=== PATIENT | male | born 1990 | race Caucasian/White ===

== ENCOUNTER 2023-10-06 14:57 | Emergency (ER) | payer SELFPAY ==
[2023-10-06 15:03] VITALS: BP 121/94; PULSE 73; TEMP 37.1; O2SAT 97; BMI 29.4
--- NOTE | 2023-10-06 15:11 | ED.DENTAL1 ---
HPI - Dental/Oral General Chief complaint: Dental/Oral Stated complaint: DENTAL PAIN Time Seen by Provider: 10/06/23 15:01 Source: patient Mode of arrival: walk-in Limitations: no limitations History of Present Illness HPI Narrative: Patient is a 33-year-old male who presents to the emergency department for pain in tooth #17. He states last night he bit down and the tooth broke. He is having significant pain today and a sensation that his face is swollen. There has been no drainage. He denies any facial injury or trauma. He uses a vape daily. No fevers or vomiting. He used ibuprofen which helped some yesterday. He does not have a dentist. Related Data Previous Rx's ?Medication ?Instructions ?Recorded amoxicillin 500 mg capsule 500 mg PO TID 10 days #30 caps 10/06/23 hydrocodone 5 mg-acetaminophen 325 1 tab PO Q6H PRN pain 3 days #12 10/06/23 mg tablet tabs ketorolac 10 mg tablet 10 mg PO TID PRN pain #10 tabs 10/06/23 Allergies Allergy/AdvReac Type Severity Reaction Status Date / Time No Known Drug Allergies Allergy Verified 10/06/23 15:03 Review of Systems ROS Constitutional Denies: fever or chills Ears, nose, mouth, and throat Reports: mouth pain; Denies: throat pain or nasal congestion Cardiovascular Denies: chest pain Respiratory Denies: shortness of breath or cough Gastrointestinal Denies: nausea or vomiting Musculoskeletal Denies: back pain or neck pain Integumentary/Breast Denies: rash Neurological Reports: headache Hematologic/Lymphatic Denies: easy bruising or easy bleeding Exam Narrative Exam Narrative: Gen.: Awake, alert, in no distress Head: Normocephalic, atraumatic ENT: Moist mucous membranes, Tooth #17 and tooth #18 with fractures of the tooth, root exposed to both teeth. No swelling or redness of the gumline. No trismus or drooling. Clear speech with airway widely open and patent. No visible dental abscess Respiratory: No respiratory distress Extremities: Moves extremities equally Psych: Normal mood and affect Neuro: No focal neuro deficit Skin: Warm, dry, intact Constitutional Vital Signs, click to edit/add: Last Vital Signs Temp 98.7 F 10/06/23 15:03 Pulse 73 10/06/23 15:03 Resp 18 10/06/23 15:03 BP 121/94 H 10/06/23 15:03 Pulse Ox 97 10/06/23 15:03 Course Vital Signs Vital signs: Vital Signs Temperature 98.7 F 10/06/23 15:03 Pulse Rate 73 10/06/23 15:03 Respiratory Rate 18 10/06/23 15:03 Blood Pressure 121/94 H 10/06/23 15:03 Pulse Oximetry 97 10/06/23 15:03 Temperature 98.7 F 10/06/23 15:03 Pulse Rate 73 10/06/23 15:03 Respiratory Rate 18 10/06/23 15:03 Blood Pressure 121/94 H 10/06/23 15:03 Pulse Oximetry 97 10/06/23 15:03 MDM - Dental/Oral MDM Narrative Medical decision making narrative: Patient treated for symptoms with amoxicillin and a short course of analgesics with anti-inflammatories and topical analgesia. Follow-up with dentist and return to the ER if symptoms change or worsen. Medical Records Attestation: I reviewed the patient's medical records. Discharge Plan Discharge Stand Alone Forms: Portal Instructions Chief Complaint: Dental/Oral Clinical Impression: Toothache, Fracture of tooth Patient Disposition: Home, Self-Care Time of Disposition Decision: 15:09 Condition: Good Prescriptions / Home Meds: New amoxicillin 500 mg capsule 500 mg PO TID 10 Days Qty: 30 0RF hydrocodone-acetaminophen 5-325 mg tablet 1 tab PO Q6H PRN (Reason: pain) 3 Days Qty: 12 0RF Rx Instructions: DX: K08.89 ketorolac 10 mg tablet 10 mg PO TID PRN (Reason: pain) Qty: 10 0RF Print Language: Sudanese Instructions: Toothache (ED) Additional Instructions: Follow up with dentist as soon as possible Referrals: Physician,Non-Staff, MD [Primary Care Provider] - 1 week
[2023-10-06] MEDS: BENZOCAINE 30 ML, lidocaine HCL 15 ML MM (15:19)
== END 2023-10-06 15:21 | disposition home or self-care (01) ==
PROVIDERS: Emergency Provider Emergency Medicine Emergency Medical Services
DX: S02.5XXA Fracture of tooth (traumatic), initial encounter for closed fracture (principal); K08.89 Other specified disorders of teeth and supporting structures; X58.XXXA Exposure to other specified factors, initial encounter; F17.290 Nicotine dependence, other tobacco product, uncomplicated
CPT/HCPCS: 99283

== ENCOUNTER 2024-03-07 08:34 | Emergency (ER) | payer OTHER, SELFPAY ==
[2024-03-07 08:37] VITALS: BP 125/88; PULSE 107; TEMP 37.4; O2SAT 96; BMI 30.3
--- OUTSIDE RECORDS SUMMARY | 2024-03-07 08:43 | XMS_ITS | CCD ---
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 applesauce, rice, lean meats, toast, and crackers. ? Avoid alcohol. ? Avoid spicy or fatty foods. Medicines ? Take zxgy-kjq-xsqegfa and prescription medicines only as told by your health care provider. ? If you were prescribed an antibiotic medicine, take it as told by your health care provider. Do not stop using the antibiotic even if you start to feel better. General instructions ? Wash your hands often using soap and water. If soap and water are not available, use a hand sander portable machine. Others in the household should wash their hands as well. Hands should be washed: ? After using the toilet or changing a diaper. ? Before preparing, cooking, or serving food. ? While caring for a sick person or while visiting someone in a hospital. ? Drink enough fluid to keep your urine pale yellow. ? Rest at home while you recover. ? Watch your condition for any changes. ? Take a warm bath to relieve any burning or pain from frequent diarrhea episodes. ? Keep all follow-up visits as told by your health care provider. This is important. Contact a health care provider if: ? You have a fever. ? Your diarrhea gets worse. ? You have new symptoms. ? You cannot keep fluids down. ? You feel light-headed or dizzy. ? You have a headache. ? You have muscle cramps. Get help right away if: ? You have chest pain. ? You feel extremely weak or you faint. ? You have bloody or black stools or stools that look like tar. ? You have severe pain, cramping, or bloating in your abdomen. ? You have trouble breathing or you are breathing very quickly. ? Your heart is beating very quickly. ? Your skin feels cold and clammy. ? You feel confused. ? You have signs of dehydration, such as: ? Dark urine, very little urine, or no urine. ? Cracked lips. ? Dry mouth. ? Sunken eyes. ? Sleepiness. ? Weakness. Summary ? Diarrhea is frequent loose and watery bowel movements. Diarrhea can make you feel weak and cause you to become dehydrated. ? Drink enough fluids to keep your urine pale yellow. ? Make sure that you wash your hands after using the toilet. If soap and water are not available, use hand sander portable machine. ? Contact a health care provider if your diarrhea gets worse or you have new symptoms. ? Get help right away if you have signs of dehydration. This information is not intended to replace advice given to you by your health care provider. Make sure you discuss any questions you have with your health care provider. Document Released: 05/01/2003 Document Revised: 09/27/2019 Document Reviewed: 10/15/2018 [employer] Patient Education ? 2020 [employer] Orthopedics Osteoarthritis Osteoarthritis is a type of arthritis that affects tissue that covers the ends of bones in joints (cartilage). Cartilage acts as a cushion between the bones and helps them move smoothly. Osteoarthritis results when cartilage in the joints gets worn down. Osteoarthritis is sometimes called wear and tear arthritis. Osteoarthritis is the most common form of arthritis. It often occurs in older people. It is a condition that gets worse over time (a progressive condition). Joints that are most often affected by this condition are in: ? Fingers. ? Toes. ? Hips. ? Knees. ? Spine, including neck and lower back. What are the causes? This condition is caused by age-related wearing down of cartilage that covers the ends of bones. What increases the risk? The following factors may make you more likely to develop this condition: ? Older age. ? Being overweight or obese. ? Overuse of joints, such as in athletes. ? Past injury of a joint. ? Past surgery on a joint. ? Family history of osteoarthritis. Wh (more content not included)... Normal [facility] ED Patient Summaryon 022 ED Patient Summary [address] [address] Patient Discharge Instructions Person Information Name: CHUCK DUNHAM Age: 31 Years Arrival Date: 05/12/2022 08:35:41 Discharge Diagnosis: Cough; Diarrhea, unspecified; Nausea vomiting and diarrhea Primary Care Physician: Sera Rich DO Provider Information Primary Provider: Sanjeev Toribio DO Advanced Gas Manager:Deven Piña PA-C The exam and treatment you received in the Emergency Department were for an urgent problem and are not intended as complete care. It is important that you follow up with a doctor, nurse practitioner, or physician?s medical staff assistant for ongoing care. If your symptoms become worse or you do not improve as expected and you are unable to reach your usual health care provider, you should return to the Emergency Department. We are available 24 hours a day. EMILIOCHUCK has been given the following list of patient education materials, prescriptions and follow-up instructions: Follow-up Instructions: With: Address: When: Sera Rich [address], [facility] [address] [place] [address] Business (1) In 3 days 05/15/2022 In the event that this physician does not participate in your insurance network, please consult with your insurance company to find a nearby participating provider. Patient Education Materials: Osteoarthritis; Diarrhea, Adult A MESSAGE TO ALL PATIENTS REGARDING OPIOIDS PRESCRIPTION OPIOIDS: WHAT YOU NEED TO KNOW Prescription opioids can be used to help relieve rhigsddd-zs-zvukmg pain and are often prescribed following a surgery or injury, or for certain health conditions. These medications can be an important part of the treatment but also come with serious risks. It is important to work with your healthcare provider to make sure you are getting the safest, most effective care. WHAT ARE THE RISKS AND SIDE EFFECTS OF OPIOID USE? Prescription opioids carry serious risks of addiction and overdose, especially with prolonged use. An opioid overdose, often marked by slowed breathing, can cause sudden . The use of prescription opioids can have a number of side effects as well, even when taken as directed: ? Tolerance?meaning you might need to take more of the medication for the same pain relief ? Physical dependence?meaning you have symptoms of withdrawal when a medication is stopped ? Increased sensitivity to pain ? Constipation ? Nausea, vomiting, and dry mouth ? Sleepiness and dizziness ? Confusion ? Depression ? Low levels of testosterone that can result in lower sex drive, energy, and strength ? Itching and sweating RISKS ARE GREATER WITH: ? History of drug misuse, substance use disorder, or overdose ? Mental health conditions (such as depression or anxiety) ? Sleep apnea ? Older age (65 years and older) ? Avoid alcohol while taking prescription opioids. Also, unless specifically advised by your health care provider, medications to avoid include: ? Benzodiazepines (such as Xanax or Valium) ? Muscle relaxants (such as Soma or Flexeril) ? Hypnotics (such as Ambien or Lunesta) ? Other prescription opioids KNOW YOUR OPTIONS Talk to your health care provider about ways to manage your pain that don?t involve prescription opioids. Some of these options may actually work better and have fewer risks and side effects. Options may include: ? Pain relievers such as acetaminophen, ibuprofen, and naproxen ? Some medication that are also used for depression or seizures ? Physical therapy and exercise ? Cognitive behavioral therapy, a psychological, goal-directed approach, in which patients learn how to modify physical, behavioral, and emotional triggers of pain and stress. IF YOU ARE PRESCRIBED OPIOIDS FOR PAIN: ? Never take opioids in greater amounts or more often than prescribed. ? Follow up with your primary health care provider. o Work together to create a plan on how to manage your pain. o Talk about ways to help manage your pain that don?t involve prescription opioids. o Talk about any and all concerns and side effects. ? Help prevent misuse and abuse o Never sell or share prescription opioids. o Never use another person?s prescription opioids. ? Store prescription opioids in a secure place and out of reach of others (this may include visitors, children, friends, and family). ? Safely dispose of unused prescription opioids: Find your community drug take-back program or your pharmacy mail-back program, or flush them down the toilet, following guidance from the Food and Drug Administration (www.fda.gov/Drugs/Re sourcesForYou). ? Visit www.cdc.gov/drugoverd ose to learn about the risks of opioids abuse and overdose. ? If you believe you may be struggling with addiction, tell your health small animal caretaker and ask for guidance or call [facility] (more content not included)... Normal [facility] Hep Func Panelon 05-12-2022 Albumin [Mass/Vol] 4.1 g/dL Normal 3.3-5.0 [facility] Comment on above: Performed By: #### 2 [id number], [id number], 0132303, 8467163, 8847723, [id number] #### [facility] [address] [place] [address] Albumin/Globulin (S) [Mass conc ratio] 1.0 Low 1.1-2.2 [facility] Comment on above: Performed By: #### 2 740912, 9992545, 3667372, 2014505, 1606928, 67042124 #### [facility] [address] [place] [address] ALP [Catalytic activity/Vol] 82 Int._Unit/L Normal 21-98 [facility] Comment on above: Performed By: #### 2 136125, 3070526, 2244796, 5714679, 7618974, 37908756 #### [facility] [address] [place] [address] ALT No additional P-5'-P [Catalytic activity/Vol] 59 Int._Unit/L High 6-46 [facility] Comment on above: Performed By: #### 2 941457, 2823096, 8308857, 4314008, 8575659, 42485373 #### [facility] [address] [place] [address] AST [Catalytic activity/Vol] 44 Int._Unit/L High 5-43 [facility] Comment on above: Performed By: #### 2 723288, 0890461, 9995982, 2910748, 4404100, 13527841 #### [facility] [address] [place] [address] Bilirubin [Mass/Vol] 1.0 mg/dL Normal 0.0-1.1 [facility] Comment on above: Performed By: #### 2 741760, 6459275, 4002545, 9856404, 1800803, 88828368 #### [facility] [address] [place], [place] [id number] Bilirubin.direct [Mass/Vol] 0.2 mg/dL Normal 0.1-0.4 [facility] Comment on above: Performed By: #### 2 971626, 3526519, 3979950, 7646675, 8804888, 45511508 #### [facility] [address] [place] [address] Bilirubin.indirect [Mass or moles/Vol] 0.8 mg/dL Normal 0.1-0.9 [facility] Comment on above: Performed By: #### 2 570501, 7969285, 1982948, 9215348, 6458114, 86679624 #### [facility] [address] [place] [address] Globulin (S) [Mass/Vol] 4.2 g/dL High 1.4-4.0 [facility] Comment on above: Performed By: #### 2 290506, 6363565, 0424335, 7330632, 4774697, 77946437 #### [facility] [address] [place] [address] Protein [Mass/Vol] 8.3 g/dL High 6.0-7.8 [facility] Comment on above: Performed By: #### 2 949277, 2876793, 4737962, 1018620, 0120652, 50076388 #### [facility] [address] [place] [address] Lipase Levelon 05-12-2022 Lipase [Catalytic activity/Vol] 32 U/L Normal 13-58 [facility] Comment on above: Performed By: #### 2 977831, 8066026, 9631174, 8532638, 1076172, 98165506 #### [facility] [address] [place] [address] UA With Cult Reflexon 2021 Bacteria LM Ql (Urine sed) TRACE Normal Trace [facility] Comment on above: Performed By: #### 1 [id number] #### [facility] [address] [place] [address] Bilirubin Ql (U) 1+ Abnormal Negative [facility] Comment on above: Performed By: #### 1 [id number] #### [facility] [address] [place] [address] Clarity (U) CLEAR Normal Clear [facility] Comment on above: Performed By: #### 1 [id number] #### [facility] [address] [place] [address] Color (U) DARK YELLO Invalid Interpretation Code [facility] Comment on above: Performed By: #### 1 [id number] #### [facility] [address] [place] [address] Epithelial cells.squamous LM.HPF (Urine sed) [#/Area] 0-2 Normal 0-2 [facility] Comment on above: Performed By: #### 1 [id number] #### [facility] [address] [place] [address] Glucose Test strip (U) [Mass/Vol] Negative Normal Negative [facility] Comment on above: Performed By: #### 1 [id number] #### [facility] [address] [place] [address] Hemoglobin Ql (U) 1+ Abnormal Negative [facility] Comment on above: Performed By: #### 1 [id number] #### [facility] [address] [place] [address] Ketones (U) [Mass/Vol] TRACE Invalid Interpretation Code Negative [facility] Comment on above: Performed By: #### 1 [id number] #### [facility] [address] [place] [address] [place].plasma/Lith ium.RBC (Bld) [Mass ratio] 0-3 Normal 0-3 [facility] Comment on above: Performed By: #### 1 [id number] #### [facility] [address] [place] [address] Mucus Ql (Urine sed) 1+ Normal [facility] Comment on above: Performed By: #### 1 1377074 #### [facility] [address] [place] [address] Nitrite Ql (U) Negative Normal Negative [facility] Comment on above: Performed By: #### 1 2974449 #### [facility] [address] [place] [address] pH (U) 6.5 [pH] Invalid Interpretation Code 5.0-9.0 [facility] Comment on above: Performed By: #### 1 [id number] #### [facility] [address] [place] [address] Protein (U) [Mass/Vol] 2+ Abnormal Negative [facility] Comment on above: Performed By: #### 1 [id number] #### [facility] [address] [place] [address] Specific gravity (U) [Rel density] 1.015 Invalid Interpretation Code 1.005-1.030 [facility] Comment on above: Performed By: #### 1 [id number] #### [facility] [address] [place] [address] Type of Urine collection method Clean Catch Normal [facility] Comment on above: Performed By: #### 1 [id number] #### [facility] [address] [place] [address] Urobilinogen Qn (U) 1.0 {Joe'U}/dL Normal 0.0-1.0 [facility] Comment on above: Performed By: #### 1 9545047 #### [facility] [address] [place] [address] WBC Auto Ql (U) Negative Normal Negative [facility] Comment on above: Performed By: #### 1 [id number] #### [facility] [address] [place] [address] WBC LM.HPF (Urine sed) [#/Area] 0-5 Normal 0-5 [facility] Comment on above: Performed By: #### 1 8285071 #### [facility] [address] [place] [address] XR Chest Single Viewon 05-12 XR Chest Single View Exam Date/Time: 05/12/2022 09:47 EST Reason for Exam: Cough Report IMPRESSION: NO EVIDENCE OF ACTIVE CHEST DISEASE. CLINICAL HISTORY: Cough. COMPARISON: 07/17/2019. COMMENT: AP portable. The heart is normal in size. The mediastinum is unremarkable. The lungs appear clear. No infiltration nor pleural effusion is evident. No significant change is noted when compared to the prior exam. FINAL REPORT Dictated: 05/12/2022 10:58 am Nikhil Kaur M.D. Signed (Electronic Signature): 05/12/2022 10:58 am Signed by: Nikhil Kaur M.D. Transcribed by: OMERO Technologist: CAROLANN Peterson [facility] eGFRon 05-12-2022 GFR/1.73 sq M.predicted among blacks MDRD (S/P/Bld) [Vol rate/Area] mL/min/{1.73_m2} Normal >=59 [facility] Comment on above: Order Comment: Order added by Discern Expert. Result Comment: eGFR is race adjusted. AA=. Performed By: #### 2 633121, 6092688, 9619393, 2976684, 3474330, [id number] #### [facility] [address] [place] [address] GFR/1.73 sq M.predicted among non-blacks MDRD (S/P/Bld) [Vol rate/Area] mL/min/{1.73_m2} Normal >=59 [facility] Comment on above: Order Comment: Order added by Discern Expert. Result Comment: [employer] Farm Manager zay kidney disease could be indicated at eGFR's of less than 60 mL/min/1.73m2. Kidney failure is indicated at less than 15 mL/min/1.73m2. Performed By: #### 2 888878, 0899156, 5493936, 9731917, 9799555, [id number] #### [facility] [address] [place] [address] CBC AUTO DIFFon 05-16-2021 BASO # 0.1 103/ul Normal 0.0-0.1 [facility] Comment on above: Performed By: #### C BC #### [facility] [address] [place] [address] Dr. Hilaria Reynolds Basophils/100 WBC (Bld) 0.8 % Normal 0.2-2.0 [facility] Comment on above: Performed By: #### C BC #### [facility] [address] [place] [address] Dr. Hilaria Reynolds EO # 0.2 103/ul Normal 0.0-0.7 [facility] Comment on above: Performed By: #### C BC #### [facility] [address] [place] [address] Dr. Hilaria Reynolds Eosinophils/100 WBC (Bld) 2.6 % Normal 0.9-7.0 [facility] Comment on above: Performed By: #### C BC #### [facility] [address] [place] [address] Dr. Hilaria Reynolds Erythrocyte distribution width (RBC) [Ratio] 12.6 % Normal 11.0-15.0 [facility] Comment on above: Performed By: #### C BC #### [facility] [address] [place] [address] Dr. Hilaria Reynolds Hematocrit (Bld) [Volume fraction] 42.4 % Normal 42.0-54.0 [facility] Comment on above: Performed By: #### C BC #### [facility] [address] [place] [address] Dr. Hilaria Reynolds Hemoglobin (Bld) [Mass/Vol] 14.6 g/dL Normal 14.0-18.0 [facility] Comment on above: Performed By: #### C BC #### [facility] [address] [place] [address] Dr. Hilaria Reynolds IG # 0.01 10e3/ul Normal 0.00-0.03 [facility] Comment on above: Performed By: #### C BC #### [facility] [address] [place] [address] Dr. Hilaria Reynolds IG % 0.1 % Normal 0.0-0.5 [facility] Comment on above: Performed By: #### C BC #### [facility] [address] [place] [address] Dr. Hilaria Reynolds LYMPH # 2.9 103/ul Normal 1.2-3.8 [facility] Comment on above: Performed By: #### C BC #### [facility] [address] [place] [address] Dr. Hilaria Reynolds Lymphocytes/100 WBC (Bld) 39.2 % Normal 20.5-60.0 [facility] Comment on above: Performed By: #### C BC #### [facility] [address] [place] [address] Dr. Hilaria Reynolds MANUAL DIFF REQ NO Normal [facility] Comment on above: Performed By: #### C BC #### [facility] [address] [place] [address] Dr. Hilaria Reynolds MCH (RBC) [Entitic mass] 31.1 pg Normal 25.9-34.0 [facility] Comment on above: Performed By: #### C BC #### [facility] [address] [place] [address] Dr. Hilaria Reynolds MCHC (RBC) [Mass/Vol] 34.4 g/dL Normal 29.9-35.2 [facility] Comment on above: Performed By: #### C BC #### [facility] [address] [address] [address] Hilaria Reynolds MCV (RBC) [Entitic vol] 90.2 fL Normal 80.0-94.0 [facility] Comment on above: Performed By: #### C BC #### [facility] [address] [address] [address] Hilaria Reynolds MONO # 0.6 103/ul Normal 0.3-0.8 [facility] Comment on above: Performed By: #### C BC #### [facility] [address] [place] [address] Dr. Hilaria Reynolds Monocytes/100 WBC (Bld) 7.8 % Normal 1.7-12.0 [facility] Comment on above: Performed By: #### C BC #### [facility] [address] [place] [address] Dr. Hilaria Reynolds NEUT # 3.6 103/ul Normal 1.4-6.5 [facility] Comment on above: Performed By: #### C BC #### [facility] [address] [place] [address] Dr. Hilaria Reynolds Neutrophils/100 WBC (Bld) 49.5 % Normal 43.0-75.0 [facility] Comment on above: Performed By: #### C BC #### [facility] [address] [address] [address] Hilaria Reynolds Platelet mean volume (Bld) [Entitic vol] 8.7 fL Critically low 9.5-13.5 [facility] Comment on above: Performed By: #### C BC #### [facility] [address] [place] [address] Dr. Hilaria Reynolds PLT 285 103/ul Normal 150-450 [facility] Comment on above: Performed By: #### C BC #### [facility] [address] [place] [address] Dr. Hilaria Reynolsd RBC 4.70 106/ul Normal 4.70-6.10 [facility] Comment on above: Performed By: #### C BC #### [facility] [address] [place] [address] Dr. Hilaria Reynolds WBC 7.3 103/ul Normal 4.0-11.0 [facility] Comment on above: Performed By: #### C BC #### [facility] [address] [place] [address] Dr. Hilaria Reynolds LAB TESTINGon 05-16-2021 RECV HEADER SEE SCANNED REPORT I N HPF Normal [facility] Comment on above: Performed By: #### M ISC #### [facility] [address] [place] [address] Dr. Hilaria Reynolds REV FROM REF LAB 05/16/21 [facility] Comment on above: Performed By: #### M ISC #### [facility] [address] [place] [address] Dr. Hilaria Reynolds SENT TO REF LAB 05/16/21 [facility] Comment on above: Result Comment: co t o ft Performed By: #### M ISC #### [facility] [address] [place] [address] Dr. Hilaria Reynolds PROF 14(COMP METB)on 021 Albumin [Mass/Vol] 4.4 g/dL Normal 3.5-5.0 [facility] Comment on above: Performed By: #### C MP #### [facility] [address] [place] [address] Dr. Hilaria Reynolds Albumin/Globulin [Mass ratio] 1.4 {ratio} Normal [facility] Comment on above: Performed By: #### C MP #### [facility] [address] [place] [address] Dr. Hilaria Reynolds ALP [Catalytic activity/Vol] 68 U/L Normal 38-126 [facility] Comment on above: Performed By: #### C MP #### [facility] [address] [place] [address] Dr. Hilaria Reynolds ALT [Catalytic activity/Vol] 27 U/L Normal 21-72 [facility] Comment on above: Performed By: #### C MP #### [facility] [address] [address] [address] Hilaria Reynolds Anion gap [Moles/Vol] 14.2 mmol/L Normal [facility] Comment on above: Performed By: #### C MP #### [facility] [address] [address] [address] Hilaria Reynolds AST [Catalytic activity/Vol] 19 U/L Normal 17-59 [facility] Comment on above: Performed By: #### C MP #### [facility] [address] [address] [address] Hilaria Reynolds Bilirubin [Mass/Vol] 0.4 mg/dL Normal 0.2-1.3 [facility] Comment on above: Performed By: #### C MP #### [facility] [address] [place] [address] Dr. Hilaria Reynolds Calcium [Mass/Vol] 9.1 mg/dL Normal 8.4-10.2 [facility] Comment on above: Performed By: #### C MP #### [facility] [address] [address] [address] Hilaria Reynolds Chloride [Moles/Vol] 101 mmol/L Normal 98-107 [facility] Comment on above: Performed By: #### C MP #### [facility] [address] [address] [address] Hilaria Reynolds CO2 [Moles/Vol] 29.5 mmol/L Normal 22.0-30.0 [facility] Comment on above: Performed By: #### C MP #### [facility] [address] [address] [address] Hilaria Reynolds Creatinine [Mass/Vol] 1.09 mg/dL Normal 0.66-1.25 [facility] Comment on above: Performed By: #### C MP #### [facility] [address] [address] [address] Hilaria Reynolds EGFR-AF GUATEMALAN >60 Normal >=60 [facility] Comment on above: Performed By: #### C MP #### [facility] [address] [address] [address] Hilaria Reynolds EGFR-NON AF GUATEMALAN >60 Normal >=60 [facility] Comment on above: Performed By: #### C MP #### [facility] [address] [place] [address] Dr. Hilaria Reynolds Globulin (S) [Mass/Vol] 3.2 g/dL Normal [facility] Comment on above: Performed By: #### C MP #### [facility] [address] [address] [address] Hilaria Reynolds Glucose [Mass/Vol] 107 mg/dL Critically high 74-106 [facility] Comment on above: Performed By: #### C MP #### [facility] [address] [place] [address] Dr. Hilaria Reynolds Potassium [Moles/Vol] 3.7 mmol/L Normal 3.4-5.0 [facility] Comment on above: Performed By: #### C MP #### [facility] [address] [place] [address] Dr. Hilaria Reynolds Protein [Mass/Vol] 7.6 g/dL Normal 6.1-8.2 [facility] Comment on above: Performed By: #### C MP #### [facility] [address] [place] [address] Dr. Hilaria Reynolds Sodium [Moles/Vol] 141 mmol/L Normal 137-145 [facility] Comment on above: Performed By: #### C MP #### [facility] [address] [address] [address] Hilaria Reynolds Urea nitrogen [Mass/Vol] 18.0 mg/dL Normal 9.0-20.0 [facility] Comment on above: Performed By: #### C MP #### [facility] [address] [place] [address] Dr. Hilaria Reynolds Urea nitrogen/Creatinine [Mass ratio] 16.5 mg/mg Normal [facility] Comment on above: Performed By: #### C MP #### [facility] [address] [place] [address] Dr. Hilaria Reynolds Vital Signs Date Time Vital Sign Value Performing Clinician Facility 06-11-2021 14:45-0500 Body height 187.96 cm Steph Ginty Other [email or web address] Other 06-11-2021 14:45-0500 Body mass index (BMI) [Ratio] 26.96 kg/m2 Steph Ginty Other [email or web address] Other 06-11-2021 14:45-0500 Body temperature 98.7 [degF] Steph Ginty Other [email or web address] Other 06-11-2021 14:45-0500 Body weight 95.26 kg Steph Ginty Other [email or web address] Other 06-11-2021 14:45-0500 SaO2% (BldA) [Mass fraction] 99 % Steph Ginty Other [email or web address] Other Encounters Encounter Date Encounter Type Care Provider Facility Start: 04-20-2023 ambulatory Barry Salamanca acility:[facility] Start: 12-18-2022 End: 12-19-2022 ambulatory [facility] Facility:[facility] Start: 10-10-2022 End: 10-11-2022 ambulatory [facility] Start: 05-12-2022 End: 05-12-2022 Emergency department patient visit Sanjeev Toribio Facility:[facility] Start: 06-11-2021 End: 06-11-2021 ambulatory Steph Ginty Other [email or web address] Other Start: 06-11-2021 Office outpatient visit 15 minutes Steph Ginty [facility] Start: 05-16-2021 End: 05-16-[address] KESHAWN BURNS Facility: Payers Date Payer Category Payer Self-pay 1990 Unknown [id number] [id number] 1990 Unknown [id number] [id number] [id number] 1988 Unknown [id number] [id number] [id number] 1988 Unknown [id number] 2.16.8 [id number] 1959 Unknown [id number] Unknown [id number] Unknown [id number] [id number] [id number] Social History Date Type Detail Facility Sex Assigned At [email or web address] Other Evaluation note 06-11-2021 Note Date & Type Note Facility 06-11-2021 Evaluation note Encounter Date Diagnosis Assessment Notes May, Contact with and (suspected) exposure to other viral communicable diseases (ICD-10 - Z20.828) May, COVID-19 (ICD-10 - U07.1) Rapid COVID test performed in office today. Advised patient that test was positive. Instructed patient to isolate per CDC guidelines for 10 days from symptom onset. May return to work/activities outside home after isolation period as long as symptoms are improving and has been afebrile for 24 hours without use of antipyretic. Advised patient that health dept. will be in contact as results are reported to them. Advised patient that treatment of COVID is with viral supportive care, OTC cold medications as directed, Tylenol/Motrin as needed for body aches/fever. Increase fluids and rest. Encouraged use of cool mist humidifier. Follow-up with PCP to advise of positive result and further management. Immediate eval for SOB, difficulty, chest pain, fevers that do not break with antipyretic or any other concerning symptoms as reviewed on patient education handout. Patient verbalizes understanding and is agreeable to treatment plan. Patient left in stable condition May, Other Additional time spent conducting pre-visit phone call, screening for symptoms, instructions on social distancing, application and removal of PPE, and cleaning of examination room, equipment and supplies was preformed. Patient education given for testing methodology and results. Patient care instructions given in writting by [facility] document [email or web address] Other History general Narrative - Reported Note Date & Type Note Facility History general Narrative - Reported Type Medical History chronic diarrhea Surgical History wisdom teeth [facility] [place] Other Summary Purpose Family History No Family History Records FoundNo Family History Records FoundNo Family History Records Found Advance Directives No Advanced Directives Records FoundNo Advanced Directives Records FoundNo Advanced Directives Records Found Additional Source Comments (unrecognized sect ion and content) No Status Records FoundNo Status Records FoundNo Status Records Found INFORMATION SOURCE (unrecogn ized section and content) DATE CREATED AUTHOR 06/11/2021 [facility] DATE CREATED AUTHOR AUTHOR'S ORGANIZ ATION 12/18/2022 [facility] DATE CREATED AUTHOR AUTHOR'S ORGANIZ ATION 07/03/2023 [facility] REASON FOR VISIT (unrecogniz ed section and content) #20 BLUE [place], CHILLS, LAC K OF TASTE, COUGH, BODYACHES X 2 DAYS FOR RECORDS PERTAINING TO PATIENTS WHO ARE OR HAVE BEEN ENROLLED IN A CHEMICAL DEPENDENCY/SUBSTANCEABUSE PROGRAM, SOME INFORMATION MAY BE OMITTED. This clinical summary was aggregated from multiple sources. Caution should be exercised in using it in the provision of clinical care. This summary normalizes information from multiple sources, and as a consequence, information in this document may materially change the coding, format and clinical context of patient data. In addition, data may be omitted in some cases. CLINICAL DECISIONS SHOULD BE BASED ON THE PRIMARY CLINICAL RECORDS. [email or web address] provides no warranty or guarantee of the accuracy or completeness of information in this document.
[2024-03-07 09:20] VITALS: BP 134/89
--- NOTE | 2024-03-07 09:38 | ED.GENADUL1 ---
HPI HPI - General Adult General Chief complaint: Dental/Oral Stated complaint: FACIAL PAIN Time Seen by Provider: 03/07/24 08:35 Source: patient and caregiver Mode of arrival: walk-in Limitations: no limitations History of Present Illness HPI narrative: 33-year-old male to the emergency department chief complaint of maxillary tenderness on the right. Patient reports he has several broken teeth in the area. he reports an increase in pain in the area and swelling this morning. Denies any fever, sweats, chills. is making him a dental appointment for later this week. Related Data Previous Rx's ?Medication ?Instructions ?Recorded amoxicillin 500 mg capsule 500 mg PO TID 10 days #30 caps 10/06/23 hydrocodone 5 mg-acetaminophen 325 1 tab PO Q6H PRN pain 3 days #12 10/06/23 mg tablet tabs ketorolac 10 mg tablet 10 mg PO TID PRN pain #10 tabs 10/06/23 amoxicillin 500 mg capsule 500 mg PO TID 7 days #21 caps 03/07/24 ibuprofen 800 mg tablet 800 mg PO Q8H PRN pain #20 tabs 03/07/24 oxycodone-acetaminophen 5 mg-325 1 tab PO Q6H PRN pain #8 tabs 03/07/24 mg tablet (Percocet) Allergies Allergy/AdvReac Type Severity Reaction Status Date / Time No Known Drug Allergies Allergy Verified 03/07/24 08:40 Opioid HPI Opioid Management Most Recent Opioid Data: Last Pain Scale 7 03/07/24 08:50 03/07/24 Last ED Pain Assessment 03/07/24 08:50 Review of Systems ROS Status of ROS 10 or more systems reviewed and unremarkable except as noted in history and below PFSH PFS Social History Little interest or pleasure in doing things: not at all Feeling down, depressed, or hopeless: not at all Exam Narrative Exam Narrative: VITALS: I have reviewed the triage vital signs. GENERAL: Well developed, well appearing adult in no acute distress. NEURO: Alert and oriented. Moves all extremities. Face is symmetric and expressive. EYES: PERRL. No scleral icterus or conjunctival injection. No discharge. HENT: Normocephalic, atraumatic. Hearing is grossly intact. Nares grossly patent and without discharge. Mucous membranes moist. Generally poor dentition. Multiple teeth with cavities and fractures in the area of question of the right maxilla. No discrete abscess appreciated. He does have some subtle edema over the maxilla. NECK: No JVD. Patient moves neck without restriction. EXTREMITIES: Symmetric muscle bulk. No joint swelling. No clubbing, cyanosis, or deformity. SKIN: Warm and dry. Normal turgor. No rash or lesions appreciated. PSYCH: Mood, affect, and interaction is appropriate to the setting. Constitutional Vital Signs, click to edit/add: Last Vital Signs Temp 99.3 F 03/07/24 08:37 Pulse 107 H 03/07/24 08:37 Resp 18 03/07/24 08:37 BP 134/89 03/07/24 09:20 Pulse Ox 96 03/07/24 08:37 O2 Del Method Room Air 03/07/24 08:37 Course Vital Signs Vital signs: Vital Signs Temperature 99.3 F 03/07/24 08:37 Pulse Rate 107 H 03/07/24 08:37 Respiratory Rate 18 03/07/24 08:37 Blood Pressure 125/88 03/07/24 08:37 Pulse Oximetry 96 03/07/24 08:37 Oxygen Delivery Method Room Air 03/07/24 08:37 Temperature 99.3 F 03/07/24 08:37 Pulse Rate 107 H 03/07/24 08:37 Respiratory Rate 18 03/07/24 08:37 Blood Pressure 134/89 03/07/24 09:20 Pulse Oximetry 96 03/07/24 08:37 Oxygen Delivery Method Room Air 03/07/24 08:37 Medical Decision Making [facility] Narrative Medical decision making narrative: 33-year-old male, well-appearing. He appears to have a mild dental infection on exam. No evidence of deep space infection. His vitals are stable. Will treat with amoxicillin, pain medications. Patient agrees with this plan. His is currently making him an appoint with a dentist. Return precautions were discussed. All questions were answered. The patient was discharged home Medical Records Medical records reviewed: Yes I reviewed the patient's medical records Discharge Plan Discharge Chief Complaint: Dental/Oral Clinical Impression: Dental abscess Patient Disposition: Home, Self-Care Time of Disposition Decision: 09:03 Condition: Good Mode of Transportation: Private Vehicle Prescriptions / Home Meds: New amoxicillin 500 mg capsule 500 mg PO TID 7 Days Qty: 21 0RF ibuprofen 800 mg tablet 800 mg PO Q8H PRN (Reason: pain) Qty: 20 0RF oxycodone-acetaminophen [Percocet] 5-325 mg tablet 1 tab PO Q6H PRN (Reason: pain) Qty: 8 0RF No Action amoxicillin 500 mg capsule 500 mg PO TID 10 Days Qty: 30 0RF hydrocodone-acetaminophen 5-325 mg tablet 1 tab PO Q6H PRN (Reason: pain) 3 Days Qty: 12 0RF Rx Instructions: DX: K08.89 ketorolac 10 mg tablet 10 mg PO TID PRN (Reason: pain) Qty: 10 0RF Print Language: Chinese Instructions: Dental Abscess (ED) Additional Instructions: Call the office of your primary care doctor to arrange for follow-up within the above-stated timeframe. Your ED visit was focused on your acute issue and does not replace primary care. You should review your labs, imaging, and diagnoses from this ED visit with your primary care physician. There may be non-emergent/ incidental findings that need further evaluation. You should review your vital signs including blood pressure with your PCP. If you were prescribed medications you should discuss possible side-effects and drug interactions with your pharmacist. Call 911 or go to the nearest Emergency Department if you develop any new or worsening symptoms. Seek immediate medical attention if you develop: increasing pain, swelling of your face, redness of your face, difficulty swallowing, difficulty breathing, drooling, or any new or worsening symptoms Referrals: Physician,Non-Staff, MD [Primary Care Provider] - 1 week (FOLLOW UP WITH YOUR DENTIST) Discharge Date/Time: 03/07/24 09:26
== END 2024-03-07 09:26 | disposition home or self-care (01) ==
PROVIDERS: Emergency Provider Student in an Organized Health Care Education/Training Program
DX: K04.7 Periapical abscess without sinus (principal)
CPT/HCPCS: 96365; 96375; 99283; 99284; J0696; J2919

== ENCOUNTER 2024-03-07 18:47 | Emergency (ER) | payer OTHER, SELFPAY ==
[2024-03-07 18:49] VITALS: BP 131/60; PULSE 66; TEMP 36.6; O2SAT 100; BMI 30.3
--- OUTSIDE RECORDS SUMMARY | 2024-03-07 18:53 | XMS_ITS | CCD ---
Author Organization [facility] Care Team Providers Care Collection Systems Consultant Name Role Phone DR KESHAWN BURNS Attending [...] Phenylephrine / Pyrilamine Drug Allergy visual hallucinations THERAVECTYS Other (1 source) No Known Medication Allergies; Translations: [No Known Medication Allergies] Propensity to adverse reactions (disorder) [facility] Repository (1 source) risperiDONE Drug Allergy 022 [facility] Repository Problems Active Problems Problem Classification Problem [...] Interpretation Reference Range Facility [facility] 12-18-2022 Consent [id number]#1 .00CD:127 Normal [facility] Registrationon 12-18-2022 Registration [id number]#1 .00CD:127 Normal [facility] 10-10-2022 Consent [id number]#1 .00CD:127 [facility] Registrationon 10-10-2022 Registration [id number]#1 .00CD:127 [facility] Coding Summary.on 05-14-2022 Coding Summary. CD:[id number] G h0bWw+PGhlYWQ+AM9MZVU fX43rtDVayJ6IT4qRFP3D RFZLPPZOKL2IMW7zdQE7N XebJ6WrriAb IsmzdCQdVF13WRr8SFV7t SlqIEyfwM3eiWPrM9z2Jz FaNH03fU30CBfhVDYmVkE 3LjZpbjsgbWFy E8wtSkWszWYxAcm+PHRhY mxlIHdpZHRoPScxMDAlJy IwdTwsGS6yBq7zVBDkUWQ vbGxhcHNlOiBj j6ufVXLgSOdvVU8khHcpG 4TbpXH2CYVbb7i7Oe84cU I+IPQkVJM7sRgmVMpor49 3AfPuw0etWLP5 eOTcERogEJC7V08bc5N8K NKbNKScTAX7rMV5dI8eoM qyvzigC9DtzKKvJlR4IVO 0bBBdmG5aoGse vhpagU0jNco+D97PPR7FQ YIKVE5TWov5A8AlMyhxfG I+KV42NRRcQQ49gLOjuMB ey2aakGy9LvRn LIBqQZF6mCqxOWmkq1KiX TOjU20byVGya7D3ILVmoC ubjCGpXrAqhXC0gD9hUOq gctqje1qhfccy Csypw5dydm10lR93H54uO PihKNNtAAM7TZZuQYUlzU baaq8cmW2mJm8+BCfhs8e sg2vnaFh2FrQd BVOnikVmuFgyYEL0j2LhV w05F0JvmZuoh2AwTdl8xc 72pMXuh3K7jIR2BIilVIZ ntA4yQNzaZyG4 AYVzLvBpaT33gHVbIJnaR l4suYdfuFykZG7kUJBjgj etOWNkjF5wRGBbhDGsdZx vLN3sRLFzivzz d749EvWnGMK4OTFvmZScQ 9YqwW1eTjPdRGCdRWZoY0 SmqBQhCKyeY596SGnjVtO 5HCGmkqPsP1Yg ELHabTvcAkY0o8G0Dv1Br 2HsjlfzWMT5AUprYLEqId AzWnCfMkK8X4QbDnb1POQ pkQbyGW5uZ2Tj UKAlhawsnhlufPA0BLIiI QTtfL83rRWjBIksIo9dg4 U6n020CBTsEUKqnX61Pl0 udDogMTBwdCBU aD1ziwuda7izvrkbLpHkT NWhUCf9PYw2NVXsmEnfNl MuCJN7OkK5PPV9qHJcnA7 cdFjueoluaR1q Oyc+I58hmE5yECG8TFR6f djfBUUryiXpGW06HK01L0 RyPjwvdGFibGU+PGRpdiB irBiiYR8mRxUg a9pvu6BbZSqtT7SrYLYgD XsjSda8MSKoQYL9vDB0cX 7fTRPkVGadf1J2uBP5I5F ydwIkuq0kf2fk UZMmVMbkD77jjKRwc4K8K UCxfPW8OLHpiEibZsVexO 93Oyc+CQYjfVmxb5NdIko jq8lwc7jsdLv1 FiMoQNVsteHtnUynSVK6p 5JyNl66K61kXUieUOOcRJ BqJHTbYJDitXpfen6abP9 wIi8+PGNvbCB3 yUI1wP8aCLSwEoT0IWdvH 516CxEdiDGyYvbew6mwj4 pdrEz2FtAbZPSzvvQdiXb aHFZ8z5JoLu90 L56lMGzbCTQqSZAxJYIaK FYabBstek1foM9lTb5+PC 2jg9ogaw22cJ41qJN+PHR eYHR2zSjeEBab QALuiA8wTWijQnG9DDEkR nDnaL47rDYkEFwhKx6enT ddtEqxDW9jOZXqvnvmb41 3SxTba8tqWZPp mNFjOQnhJWG9A24gj4I3S TGkLQRnJLX8cFO3sU7kaI lnbjogbGVmdDsgdmVydGl mFOatCLgjV940 IHRvcDsnPlBhdGllbnQgT sMoRPw2M1FzAue4XBNxxE oxKB3jxPOyQRvpDf8jeTa lmKsrXE1sDLHa nstes995DhRvx9dlRTLnq GWdUQgjGXZ4Y31af8Y2SJ BpFNVfAJK4gJF1sI6kdDi nbjogbGVmdDsg wvGaeHtkBXjcLLtaY517M HRvcDsnPkJpcnRoIERhdG X9QX03SB80cJMzm7W9bGS 8J1HiLBFwlyqr ahzqwAR1VZOcDCJrfX03H e7oxObrLk6tEFDvSGG5HZ UufSYuZ6KtiF4cKdHaEYK uDSRfC5EhtPKy WDbrK922ERkaUnJ9FJFzk qHbC0DoGUXrjGywQyR5i4 T8Yl9NE2G3ND92GN01mHH dc1K0lPH3C3Pl TPYqrogarcaybGZ5OYHjC DEdkH21Qj6usAjkPh8fGP QlHQT5NHIxqEUhE8NdfV6 yOiAjMDAwMDAw T3OlyMAiVEflA046CWarD aG3VMQlzuPxU5BcIRCskK htZwI6j8G4Ri0XBXv1CU0 4DS51iEBvi8M8 oYK0R7IkXOFudeznipjeq FC8DZRwVDPyoI73Ut5dwX hnFu1hTGGrZYF0AEQsoWH iD7KucR4iJwAo CVLcFGQvK4XuiCQlCPnmJ 684ONknKuS8BHGaqzScP3 LlJSOdnNzsOkQ6w1E8Ax4 HQMByFP01JVC2 fQQ1CR54EW32V5YjIylrl GFibGU+PHRhYmxlIHdpZH RoPScxMDAlJyBzdHlsZT0 wGs1mGTWbMKRq gXfknGNcTgRmf7ovQGDcZ ExgRO4pkHlyV8TcgSV1HE Kjc4b4Ql71Z02jM7LveNW +ZDLnrOX9jGF9 iS8kDiJfEfR4MMoqX930V oPlzVViHibpr3ogn2cukI x4VpR9SFZuvbWdaSolCQK 8p8DzWk09J52b IHdpZHRoPSIxNSUiIHZhb Bhltm6lcX9kNm1+PGNvbC S4rMI1xZ0yNqZfJcL7WPq eN406ZzEuhCVi Sqnqv5pyn3qutSd1IlAvX OMngrVwqDwmXPW3r3RbLc 22P8DcsNzct0ZaDks9fi3 2jFQwg3X8cVB9 L9EqETDfxrglpBFbvBnkM T3zRXTnbqmiIDRiiN4fJK OkQ4u1NbBmXvC0LWikX1V vyeM3NFGanXZf YGrzFVI6D25wk1P8DPZjW IQcZJJ0dZU1sB5cxZisjs ogbGVmdDsgdmVydGljYWw sAZknE075AZNh rPpvTULgoZ5iFTBakCGur DhuKT1oDVMbkfopXitOF9 dZZYKFQRTCWCXENG9qLoe vdGQ+PHRkIHN0 cCurBVgiXRFsyR2hLDNwR 5g7HpYwVzY7XLteB3TdJM TauuecJz96zT8gEpUoEfY 2KSqoH5NhlxH1 GUQhsTFqUAflYPB4H70xr 7W5PQGbDXDyYNN9iRH9hX 1hbGlnbjogbGVmdDsgdmV ydGljYWwtYWxp C093YCAeoXamNsHtMgOeD zL7HWw2G7CpNmv1FXVxxM lpQZ3znOCvFHetJi2ssBt wsKbgVM8nQWKb caiuMHOwuF8yANJidZBht NgbFW2lTNQjjufhq891On YxMXV5PTEfsSMhK3XetB1 yOiAjMDAwMDAw D7AltBJaQLolG530WNzlU gF3RYWnusOiC9GzZPIoqM bsRrE1u3M1St6vZnLARSY yczwvdGQ+PHRk YSD2cIlhDHzpUHIhfP0hY SMqH7t3HhVtRrY4KCnuK0 ChPYAhmlvgDm62iB7uKxX sNfS7NGblD3Iu kyP3ZYSaePYxYDjrNVI9V 27ut2S1DPQbJVUcHRE2bX K7cW8jwCfmxxtnpIWsjVh gdmVydGljYWwt JKsfE965QGHxbNmgHm8ut XV8S6VgQqd1TSWsqKkgWT 7ucHRxMSmoAl2uaIywqId rQS0vGVQkbjtq DZYpaS4jSFVjvTXrxOylM Q0kXBLcfbjkx351JtLmFW K4EQDloKGiU6TliY6gBsP jOUZyDZDkP5Jx wCZjZRcoK953BYrcJcF0Y JOsxpHwL6CzKVZozOotNt X1n3W4Ux2HxJLfV7HgC2f 9K1CdItuhtLQ+ KR98JNGnJL57zMZrfGAeu 2hieQo9YaElCLFpAJW2vY khTFstj5GpTNYfI69rmJT zq7A8ODNycOvo uFOdJdZmfOI3gG9qZZakh xyxj2nalghzQqnux3rbdi 41yD52A31sMRosDBDrYQR zMCUiIHZhbGln fz5yeN1rSj7+CMMkiAY5n NQ9aS4iStMtBqN0UZzlT9 73TtGapQOfYtvcl8vby6z ruTk9BmJvGPXx xgEvxWakAHE6d0OkUy47B 29sIHdpZHRoPSIyMCUiIH AugQugbd5euD7xQy4+PC9 ed0pcfp07dX77 dHI+RUAhXUS6lBntXRlsE AHzeS7tZUojUoE3MGOhOn PabQ14yMYqMKpnRs4wsPo uvUvzAH0lQRJd wtquf499PwOxi8dvJKUhf QYeSFdvYVI1V56uy8Z0DT PiBNSdTTB8kIS2dG2sqRy nbjogbGVmdDsg vePfoIyoSErtLEtmQ726H MBsqIszFuUhaTKtP8irwo PQEZ3zEwtyiAD+PHRkIHN 0eWxlPSdwYWRk hR8qNVKiI0g8OzQeLwG0Z NofX3XtuiU4GFWjcYHxMT RumNJNnM0gwcnns5yvpjx gIzAwMDAwMDt0 EIb8ZAWzhEjvNlQfUWH2U tJ0YEA8bIQzyD0ldMctas ljvG9mNqe+RklOOjwvdGQ +GJOeJSH1hFap MLjyCLJpoS7iQFKwW0l1F bGuHhA3GDhlQ7QkinM0FJ RjiGYmRNAriPONmI6kkbj gi7wdqkylLrBx QBWfMOd9GJy8QMYpjMqwG zAiLIN5RuF5KBW2rXSsmH 5bwVxhfagxoM6eFhy+TVJ OOjwvdGQ+PHRk ROT1gXyyDQvkWNOkpX6gW QClX8k8CxJcNvE4BZbcW8 OhmmA7WOAzcVPnLQJbyEN GcC9fvdsxo9jf ifuxRgLpQMQyLRj9NXc4O HZaqYhhHwRvLQR8EqK7BU D2nVWogZ9ipProyvgfvC2 wOyc+LJQ8ORF2 EN53WY75I8XyBznzaMBbg +PHRhYmxlIHdpZHRoPS vyNMBdVnIqjVlzEJ1qUa2 yZGVyLWNvbGxh cHNl (more content not included)... Normal [facility] Auto Diffon 05-12-2022 Basophils/100 WBC (Bld) 0.3 % Normal 0.0-2.0 [facility] Comment on above: Order Comment: Order Added by Discern Expert. Performed By: #### 2 275362, 2240553, 6522401, 7817616, 9706917, 22517835 #### [facility] [address] [place] [address] Basophils/Leukocyte s Auto (Bld) [Pure # fraction] 0.0 E9/L Normal 0.0-0.2 [facility] Comment on above: Order Comment: Order Added by Discern Expert. Performed By: #### 2 892519, 3126896, 4340661, 8028618, 1462229, 70498016 #### [facility] [address] [place] [address] Eosinophils/100 WBC (Bld) 0.5 % Normal 0.0-8.0 [facility] Comment on above: Order Comment: Order Added by Discern Expert. Performed By: #### 2 431198, 8242834, 7648423, 9950992, 2174412, 41218281 #### [facility] [address] [place] [address] Eosinophils/Leukocy juve Auto (Bld) [Pure # fraction] 0.1 E9/L Normal 0.0-0.5 [facility] Comment on above: Order Comment: Order Added by Discern Expert. Performed By: #### 2 604433, 8447498, 5791484, 0898964, 2802941, 07262813 #### [facility] [address] [place] [address] Lymphocytes/100 WBC (Bld) 16.6 % Normal 14.0-50.0 [facility] Comment on above: Order Comment: Order Added by Discern Expert. Performed By: #### 2 292063, 3129923, 9256627, 8410696, 3660609, 23946834 #### [facility] [address] [place] [address] Lymphocytes/Leukocy juve Auto (Bld) [Pure # fraction] 2.2 E9/L Normal 1.0-4.0 [facility] Comment on above: Order Comment: Order Added by Discern Expert. Performed By: #### 2 086498, 0329091, 8607794, 7614439, 8466057, 48870275 #### [facility] [address] [place] [address] Monocytes/100 WBC (Bld) 6.0 % Normal 4.0-14.0 [facility] Comment on above: Order Comment: Order Added by Discern Expert. Performed By: #### 2 297808, 4764516, 2204681, 1206583, 5237461, 98425078 #### [facility] [address] [place] [address] Monocytes/Leukocyte s Auto (Bld) [Pure # fraction] 0.8 E9/L Normal 0.2-1.0 [facility] Comment on above: Order Comment: Order Added by Discern Expert. Performed By: #### 2 543770, 7849122, 1983712, 8326338, 4670101, 05969885 #### [facility] [address] [place] [address] Neutrophils/100 WBC (Bld) 76.6 % High 36.0-75.0 [facility] Comment on above: Order Comment: Order Added by Discern Expert. Performed By: #### 2 561734, 5202691, 6967279, 3462482, 7675188, 22275622 #### [facility] [address] [place] [address] Neutrophils/Leukocy juve Auto (Bld) [Pure # fraction] 10.0 E9/L High 2.0-7.5 [facility] Comment on above: Order Comment: Order Added by Discern Expert. Performed By: #### 2 189069, 2033197, 2013279, 1478695, 5758304, 35907780 #### [facility] [address] [place] [address] BMPon 05-12-2022 Creatinine [Mass/Vol] 1.0 mg/dL Normal 0.5-1.3 [facility] Comment on above: Performed By: #### 2 535300, 9592870, 9862202, 7844124, 0759088, 76222091 #### [facility] [address] [place] [address] Urea nitrogen [Mass/Vol] 10 mg/dL Normal 5-21 [facility] Comment on above: Performed By: #### 2 529376, 3214871, 7975085, 7321933, 7287799, 07085969 #### [facility] [address] [place] [address] Urea nitrogen/Creatinine [Mass ratio] 10 No Units Normal 10-20 [facility] Comment on above: Performed By: #### 2 965735, 1703895, 7300413, 4544754, 5782523, 55663700 #### [facility] [address] [place] [address] Anion gap [Moles/Vol] 15 mmol/L Normal 6-16 [facility] Comment on above: Performed By: #### 2 792533, 1973443, 6720721, 2833024, 6591614, 28664634 #### [facility] [address] [place] [address] Calcium [Mass/Vol] 9.1 mg/dL Normal 8.9-11.1 [facility] Comment on above: Performed By: #### 2 117720, 3099855, 1100074, 5432640, 8931717, 57020684 #### [facility] [address] [place] [address] Chloride [Moles/Vol] 95 mmol/L Low 101-111 [facility] Comment on above: Performed By: #### 2 278813, 1905393, 9026532, 3885701, 1494113, 27530344 #### [facility] [address] [place] [address] CO2 [Moles/Vol] 27 mmol/L Normal 21-31 [facility] Comment on above: Performed By: #### 2 289420, 0498965, 5536221, 1559731, 9059274, 95470056 #### [facility] [address] [place] [address] Glucose [Mass/Vol] 105 mg/dL Normal 55-199 [facility] Comment on above: Result Comment: If t his glucose result represents a fasting glucose, interpretation should refer to the following reference range: 55-99 mg/dL Performed By: #### 2 607370, 5548090, 3615505, 5493026, 6070230, 29098365 #### [facility] [address] [place] [address] Potassium [Moles/Vol] 3.4 mmol/L Low 3.5-5.3 [facility] Comment on above: Performed By: #### 2 075183, 4403494, 0954684, 2163144, 0286763, 78430356 #### [facility] [address] [place] [address] Sodium [Moles/Vol] 134 mmol/L Low 135-145 [facility] Comment on above: Performed By: #### 2 634328, 3814771, 7114272, 5438678, 0061105, 83041716 #### [facility] [address] [place] [address] CBC w/ Auto Diffon Erythrocyte distribution width (RBC) [Ratio] 12.3 % Normal 10.9-14.2 [facility] Comment on above: Performed By: #### 2 948458, 0001270, 5296789, 3022199, 6169066, 86639331 #### [facility] [address] [place] [address] Hematocrit (Bld) [Volume fraction] 41.1 % Normal 37.7-49.0 [facility] Comment on above: Performed By: #### 2 719462, 5744849, 8849950, 9763537, 1533743, 75216277 #### [facility] [address] [place] [address] Hemoglobin (Bld) [Mass/Vol] 14.5 g/dL Normal 13.5-17.5 [facility] Comment on above: Performed By: #### 2 189217, 4945172, 0542308, 7833768, 1533660, 22354941 #### [facility] [address] [place] [address] MCH (RBC) [Entitic mass] 30.8 pg Normal 27.0-34.0 [facility] Comment on above: Performed By: #### 2 578535, 8393881, 9807108, 5479102, 4993148, 89246978 #### [facility] [address] [place] [address] MCHC (RBC) [Mass/Vol] 35.3 g/dL Normal 31.4-36.0 [facility] Comment on above: Performed By: #### 2 018599, 2993453, 0882760, 8974906, 2179130, 08078745 #### [facility] [address] [place] [address] MCV (RBC) [Entitic vol] 87.3 fL Normal 80.0-100.0 [facility] Comment on above: Performed By: #### 2 620019, 3570050, 0458192, 8903714, 8239217, 07258793 #### [facility] [address] [place] [address] Platelet mean volume (Bld) [Entitic vol] 7.2 fL Normal 6.4-10.8 [facility] Comment on above: Performed By: #### 2 085954, 2892196, 2069225, 3976590, 3649916, 47264352 #### [facility] [address] [place] [address] Platelets (Bld) [#/Vol] 309.0 E9/L Normal 150.0-500.0 [facility] Comment on above: Performed By: #### 2 121524, 2659782, 2465044, 0672375, 2480555, 49162463 #### [facility] [address] [place] [address] RBC (Bld) [#/Vol] 4.7 E12/L Normal 4.3-5.9 [facility] Comment on above: Performed By: #### 2 135509, 7176380, 8801287, 7393306, 9808725, 95051569 #### [facility] [address] [place] [address] WBC corrected for nucl RBC Auto (Bld) [#/Vol] 13.1 E9/L High 4.0-11.0 [facility] Comment on above: Performed By: #### 2 437726, 7236459, 3811278, 7323698, 5279562, 92455102 #### [facility] [address] [place] [address] Consent for Treatmenton 04-24 Consent for Treatment [id number] .00CD:127 Normal [facility] Discharge Instructionson Discharge Instructions [id number]#1 .[id number]:127 Normal [facility] ED Clinical Summaryon 2021 ED Clinical Summary [address] [address] ED Clinical Summary Person Information Name: CHUCK DUNHAM [facility]gy[facility] Age: 31 Years : 1990 Sex: Male Language: Kinyarwanda PCP: Sera Rich DO Marital Status: Phone: [phone] Visit Id: Visit Reason: Nausea; Shortness of [...] 05/12/2022 10:47:27 05/12/2022 10:47:27 05/12/2022 10:47:27 ADDRESS: [address] [place] [address] [facility] DOC NOTES: MEDICAL INFORMATION: Prescriptions Given: New Medications [id number], [address] [place], [place] [id number], [phone] dextromethorphan-prom ethazine (dextromethorphan-pro methazine 15 mg-6.25 mg/5 [...] Sera Posadae [address], [address], [facility] [address] [place], [place] [id number] Business (1) In 3 days 05/15/2022 DIAGNOSIS: Cough; Diarrhea, unspecified; Nausea vomiting and diarrhea Normal [facility] ED Note-Physicianon 05-12-20 ED Note-Physician Basic [...] for 5 day(s), 200 mL, Refill(s) 0, [id number], 87, kg, 05/12/22 8:56:00 EST, [...] XR Chest Single View Medications Administered Given PS9417 [F], 1000 mL, IV ondansetron 4 mg/2 [...] [address] [place] [address]- [facility] (1) Additional Instructions: Patient Education Osteoarthritis Diarrhea, Adult Attestation Patient seen and evaluated by the physician contact lens assistant. Attending physician was present in the emergency department and supervised care. This visit was performed by both the physician and an APC. I performed all aspects of the MDM as documented. This report was transcribed using voice recognition software. Every effort was made to ensure accuracy, however, inadvertently computerized larriman mistakes may be present. Appropriate healthcare PPE was used in evaluating this patient. The patient was placed in a mask. The healthcare provider was wearing mask, gloves, and utilizing proper hand hygiene. All equipment was properly cleansed. Problem List/Past Medical History Ongoing Arthritis Bipolar History of migraine headaches Smoker Historical Anxiety Depression Irritable bowel Procedure/Surgical History Bilateral vasectomy (01/21/2018), [place] tooth. Medications Inpatient No active inpatient medications [...] Grandparent. Hype (more content not included)... Normal [facility] Comment on above: Result Comment: Elec [...] oral rehydration solution (ORS). This is an zbps-kil-rvaagmh medicine that helps return your body to [...] sports drinks, and soda. ? Eat bland, tlfa-id-mrmres foods in small amounts as you are able. These foods include bananas, applesauce, rice, lean meats, toast, and crackers. ? Avoid alcohol. ? Avoid spicy or fatty foods. Medicines ? Take pnyf-ixp-cptucor and prescription medicines only as told by your health care provider. ? If you were prescribed an antibiotic medicine, take it as told by your health care provider. Do not stop using the antibiotic even if you start to feel better. General instructions ? Wash your hands often using soap and water. If soap and water are not available, use a hand electronic scale tester. Others in the household should wash their [...] and water are not available, use hand electronic scale tester. ? Contact a health care provider if [...] 05/01/2003 Document Revised: 09/27/2019 Document Reviewed: 10/15/2018 [employer] Patient Education ? 2020 [employer] Orthopedics Osteoarthritis Osteoarthritis is a type [...] osteoarthritis. Wh (more content not included)... Normal [facility] ED Patient Summaryon 022 ED Patient Summary [address] [address] Patient Discharge Instructions Person Information Name: CHUCK DUNHAM Age: 31 Years Arrival Date: 05/12/2022 08:35:41 Discharge Diagnosis: Cough; Diarrhea, unspecified; Nausea vomiting and diarrhea Primary Care Physician: Sera Rich DO Provider Information Primary Provider: Sanjeev Toribio DO [employer] Professional:Deven Piña PA-C The exam and treatment you received in the Emergency Department were for an urgent problem and are not intended as complete care. It is important that you follow up with a doctor, nurse practitioner, or physician?s contact lens assistant for ongoing care. If your symptoms [...] Instructions: With: Address: When: Sera Rich [address], [facility] [address] [place] [address] Business (1) In 3 days 05/15/2022 In the event that this physician does not participate in your insurance network, please consult with your insurance company to find a nearby participating provider. Patient Education Materials: Osteoarthritis; Diarrhea, Adult A MESSAGE TO ALL PATIENTS REGARDING OPIOIDS PRESCRIPTION OPIOIDS: WHAT YOU NEED TO KNOW Prescription opioids can be used to help relieve xefyqixk-gr-tigscy pain and are often prescribed following a [...] be struggling with addiction, tell your health manager critical care unit and ask for guidance or call [facility] (more content not included)... Normal [facility] Hep Func Panelon 05-12-2022 Albumin [Mass/Vol] 4.1 g/dL Normal 3.3-5.0 [facility] Comment on above: Performed By: #### 2 396250, 0353779, 7202433, 1348298, 7574172, 26957275 #### [facility] [address] [place] [address] Albumin/Globulin (S) [Mass conc ratio] 1.0 Low 1.1-2.2 [facility] Comment on above: Performed By: #### 2 425822, 0845832, 4669639, 9317075, 1547445, 05070574 #### [facility] [address] [place] [address] ALP [Catalytic activity/Vol] 82 Int._Unit/L Normal 21-98 [facility] Comment on above: Performed By: #### 2 778616, 4744977, 8032674, 4613059, 0609273, 71302259 #### [facility] [address] [place] [address] ALT No additional P-5'-P [Catalytic activity/Vol] 59 Int._Unit/L High 6-46 [facility] Comment on above: Performed By: #### 2 003717, 1403253, 8571236, 5694314, 8709261, 71435996 #### [facility] [address] [place] [address] AST [Catalytic activity/Vol] 44 Int._Unit/L High 5-43 [facility] Comment on above: Performed By: #### 2 351439, 9369424, 1517090, 6682567, 4210080, 89994640 #### [facility] [address] [place] [address] Bilirubin [Mass/Vol] 1.0 mg/dL Normal 0.0-1.1 [facility] Comment on above: Performed By: #### 2 511372, 7904345, 0642059, 7568295, 8767726, 40190325 #### [facility] [address] [place], [place] [address] Bilirubin.direct [Mass/Vol] 0.2 mg/dL Normal 0.1-0.4 [facility] Comment on above: Performed By: #### 2 [id number], [id number], 3849582, 9818117, 0392932, [id number] #### [facility] [address] [place] [address] Bilirubin.indirect [Mass or moles/Vol] 0.8 mg/dL Normal 0.1-0.9 [facility] Comment on above: Performed By: #### 2 [id number], 0288168, 6587099, 2109248, 5040632, [id number] #### [facility] [address] [place] [address] Globulin (S) [Mass/Vol] 4.2 g/dL High 1.4-4.0 [facility] Comment on above: Performed By: #### 2 [id number], 5970677, 3419741, 3977139, 0080516, [id number] #### [facility] [address] [place] [address] Protein [Mass/Vol] 8.3 g/dL High 6.0-7.8 [facility] Comment on above: Performed By: #### 2 755171, 1221973, 9820542, 0391963, 6179572, 11869112 #### [facility] [address] [place] [address] Lipase Levelon 05-12-2022 Lipase [Catalytic activity/Vol] 32 U/L Normal 13-58 [facility] Comment on above: Performed By: #### 2 [id number], 5333432, 6054558, 9881098, 6540403, [id number] #### [facility] [address] [place] [address] UA With Cult Reflexon 2021 Bacteria LM Ql (Urine sed) TRACE Normal Trace [facility] Comment on above: Performed By: #### 1 [id number] #### [facility] [address] [place] [address] Bilirubin Ql (U) 1+ Abnormal Negative [facility] Comment on above: Performed By: #### 1 [id number] #### [facility] [address] [place] [address] Clarity (U) CLEAR Normal Clear [facility] Comment on above: Performed By: #### 1 [id number] #### [facility] [address] [place] [address] Color (U) DARK YELLO Invalid Interpretation Code [facility] Comment on above: Performed By: #### 1 [id number] #### [facility] [address] [place] [address] Epithelial cells.squamous LM.HPF (Urine sed) [#/Area] 0-2 Normal 0-2 [facility] Comment on above: Performed By: #### 1 [id number] #### [facility] [address] [place] [address] Glucose Test strip (U) [Mass/Vol] Negative Normal Negative [facility] Comment on above: Performed By: #### 1 [id number] #### [facility] [address] [place] [address] Hemoglobin Ql (U) 1+ Abnormal Negative [facility] Comment on above: Performed By: #### 1 [id number] #### [facility] [address] [place] [address] Ketones (U) [Mass/Vol] TRACE Invalid Interpretation Code Negative [facility] Comment on above: Performed By: #### 1 [id number] #### [facility] [address] [place] [address] [place].plasma/Lith ium.RBC (Bld) [Mass ratio] 0-3 Normal 0-3 [facility] Comment on above: Performed By: #### 1 [id number] #### [facility] [address] [place] [address] Mucus Ql (Urine sed) 1+ Normal [facility] Comment on above: Performed By: #### 1 [id number] #### [facility] [address] [place] [address] Nitrite Ql (U) Negative Normal Negative [facility] Comment on above: Performed By: #### 1 [id number] #### [facility] [address] [place] [address] pH (U) 6.5 [pH] Invalid Interpretation Code 5.0-9.0 [facility] Comment on above: Performed By: #### 1 [id number] #### [facility] [address] [place] [address] Protein (U) [Mass/Vol] 2+ Abnormal Negative [facility] Comment on above: Performed By: #### 1 [id number] #### [facility] [address] [place] [address] Specific gravity (U) [Rel density] 1.015 Invalid Interpretation Code 1.005-1.030 [facility] Comment on above: Performed By: #### 1 [id number] #### [facility] [address] [place] [address] Type of Urine collection method Clean Catch Normal [facility] Comment on above: Performed By: #### 1 [id number] #### [facility] [address] [place] [address] Urobilinogen Qn (U) 1.0 {Joe'U}/dL Normal 0.0-1.0 [facility] Comment on above: Performed By: #### 1 [id number] #### [facility] [address] [place] [address] WBC Auto Ql (U) Negative Normal Negative [facility] Comment on above: Performed By: #### 1 [id number] #### [facility] [address] [place] [address] WBC LM.HPF (Urine sed) [#/Area] 0-5 Normal 0-5 [facility] Comment on above: Performed By: #### 1 [id number] #### [facility] [address] [place] [address] XR Chest Single Viewon 05-12 XR Chest [...] M.D. Transcribed by: OMERO Technologist: CAROLANN Peterson [facility] eGFRon 05-12-2022 GFR/1.73 sq M.predicted among blacks MDRD (S/P/Bld) [Vol rate/Area] mL/min/{1.73_m2} Normal >=59 [facility] Comment on above: Order Comment: Order added by Discern Expert. Result Comment: eGFR is race adjusted. AA=. Performed By: #### 2 [id number], [id number], [id number] #### Page [facility] [address] [place] [address] GFR/1.73 sq M.predicted among non-blacks MDRD (S/P/Bld) [Vol rate/Area] mL/min/{1.73_m2} Normal >=59 [facility] Comment on above: Order Comment: Order added by Discern Expert. Result Comment: Magnetic Locater zay kidney disease could be indicated at eGFR's of less than 60 mL/min/1.73m2. Kidney failure is indicated at less than 15 mL/min/1.73m2. Performed By: #### 2 [id number] #### [facility] [address] [place] [address] CBC AUTO DIFFon 05-16-2021 BASO # 0.1 103/ul Normal 0.0-0.1 [facility] Comment on above: Performed By: #### C BC #### [facility] [address] [place] [address] Dr. Hilaria Reynolds Basophils/100 WBC (Bld) 0.8 % Normal 0.2-2.0 [facility] Comment on above: Performed By: #### C BC #### [facility] [address] [place] [address] Dr. Hilaria Reynolds EO # 0.2 103/ul Normal 0.0-0.7 [facility] Comment on above: Performed By: #### C BC #### [facility] [address] [place] [address] Dr. Hilaria Reynolds Eosinophils/100 WBC (Bld) 2.6 % Normal 0.9-7.0 [facility] Comment on above: Performed By: #### C BC #### [facility] [address] [place] [address] Dr. Hilaria Reynolds Erythrocyte distribution width (RBC) [Ratio] 12.6 % Normal 11.0-15.0 [facility] Comment on above: Performed By: #### C BC #### [facility] [address] [place] [address] Dr. Hilaria Reynolds Hematocrit (Bld) [Volume fraction] 42.4 % Normal 42.0-54.0 [facility] Comment on above: Performed By: #### C BC #### [facility] [address] [place] [address] Dr. Hilaria Reynolds Hemoglobin (Bld) [Mass/Vol] 14.6 g/dL Normal 14.0-18.0 [facility] Comment on above: Performed By: #### C BC #### [facility] [address] [place] [address] Dr. Hilaria Reynolds IG # 0.01 10e3/ul Normal 0.00-0.03 [facility] Comment on above: Performed By: #### C BC #### [facility] [address] [place] [address] Dr. Hilaria Reynolds IG % 0.1 % Normal 0.0-0.5 [facility] Comment on above: Performed By: #### C BC #### [facility] [address] [place] [address] Dr. Hilaria Reynolds LYMPH # 2.9 103/ul Normal 1.2-3.8 [facility] Comment on above: Performed By: #### C BC #### [facility] [address] [place] [address] Dr. Hilaria Reynolds Lymphocytes/100 WBC (Bld) 39.2 % Normal 20.5-60.0 [facility] Comment on above: Performed By: #### C BC #### [facility] [address] [place] [address] Dr. Hilaria Reynolds MANUAL DIFF REQ NO Normal [facility] Comment on above: Performed By: #### C BC #### [facility] [address] [place] [address] Dr. Hilaria Reynolds MCH (RBC) [Entitic mass] 31.1 pg Normal 25.9-34.0 [facility] Comment on above: Performed By: #### C BC #### [facility] [address] [place] [address] Dr. Hilaria Reynolds MCHC (RBC) [Mass/Vol] 34.4 g/dL Normal 29.9-35.2 [facility] Comment on above: Performed By: #### C BC #### [facility] [address] [address] [address] Hilaria Reynolds MCV (RBC) [Entitic vol] 90.2 fL Normal 80.0-94.0 [facility] Comment on above: Performed By: #### C BC #### [facility] [address] [address] [address] Hilaria Reynolds MONO # 0.6 103/ul Normal 0.3-0.8 [facility] Comment on above: Performed By: #### C BC #### [facility] [address] [place] [address] Dr. Hilaria Reynolds Monocytes/100 WBC (Bld) 7.8 % Normal 1.7-12.0 [facility] Comment on above: Performed By: #### C BC #### [facility] [address] [place] [address] Dr. Hilaria Reynolds NEUT # 3.6 103/ul Normal 1.4-6.5 [facility] Comment on above: Performed By: #### C BC #### [facility] [address] [place] [address] Dr. Hilaria Reynolds Neutrophils/100 WBC (Bld) 49.5 % Normal 43.0-75.0 [facility] Comment on above: Performed By: #### C BC #### [facility] [address] [address] [address] Hilaria Reynolds Platelet mean volume (Bld) [Entitic vol] 8.7 fL Critically low 9.5-13.5 [facility] Comment on above: Performed By: #### C BC #### [facility] [address] [place] [address] Dr. Hilaria Reynolds PLT 285 103/ul Normal 150-450 [facility] Comment on above: Performed By: #### C BC #### [facility] [address] [place] [address] Dr. Hialria Reynolds RBC 4.70 106/ul Normal 4.70-6.10 [facility] Comment on above: Performed By: #### C BC #### [facility] [address] [place] [address] Dr. Hilaria Reynolds WBC 7.3 103/ul Normal 4.0-11.0 [facility] Comment on above: Performed By: #### C BC #### [facility] [address] [place] [address] Dr. Hilaria Reynolds LAB TESTINGon 05-16-2021 RECV HEADER SEE SCANNED REPORT I N HPF Normal [facility] Comment on above: Performed By: #### M ISC #### [facility] [address] [place] [address] Dr. Hilaria Reynolds REV FROM REF LAB 05/16/21 [facility] Comment on above: Performed By: #### M ISC #### [facility] [address] [place] [address] Dr. Hilaria Reynolds SENT TO REF LAB 05/16/21 [facility] Comment on above: Result Comment: co t o ft Performed By: #### M ISC #### [facility] [address] [place] [address] Dr. Hilaria Reynolds PROF 14(COMP METB)on 021 Albumin [Mass/Vol] 4.4 g/dL Normal 3.5-5.0 [facility] Comment on above: Performed By: #### C MP #### [facility] [address] [place] [address] Dr. Hilaria Reynolds Albumin/Globulin [Mass ratio] 1.4 {ratio} Normal [facility] Comment on above: Performed By: #### C MP #### [facility] [address] [place] [address] Dr. Hilaria Reynolds ALP [Catalytic activity/Vol] 68 U/L Normal 38-126 [facility] Comment on above: Performed By: #### C MP #### [facility] [address] [place] [address] Dr. Hilaria Reynolds ALT [Catalytic activity/Vol] 27 U/L Normal 21-72 [facility] Comment on above: Performed By: #### C MP #### [facility] [address] [address] [address] Hilaria Reynolds Anion gap [Moles/Vol] 14.2 mmol/L Normal [facility] Comment on above: Performed By: #### C MP #### [facility] [address] [address] [address] Hilaria Reynolds AST [Catalytic activity/Vol] 19 U/L Normal 17-59 [facility] Comment on above: Performed By: #### C MP #### [facility] [address] [address] [address] Hilaria Reynolds Bilirubin [Mass/Vol] 0.4 mg/dL Normal 0.2-1.3 [facility] Comment on above: Performed By: #### C MP #### [facility] [address] [place] [address] Dr. Hilaria Reynolds Calcium [Mass/Vol] 9.1 mg/dL Normal 8.4-10.2 [facility] Comment on above: Performed By: #### C MP #### [facility] [address] [address] [address] Hilaria Reynolds Chloride [Moles/Vol] 101 mmol/L Normal 98-107 [facility] Comment on above: Performed By: #### C MP #### [facility] [address] [address] [address] Hilaria Reynolds CO2 [Moles/Vol] 29.5 mmol/L Normal 22.0-30.0 [facility] Comment on above: Performed By: #### C MP #### [facility] [address] [address] [address] Hilaria Reynolds Creatinine [Mass/Vol] 1.09 mg/dL Normal 0.66-1.25 [facility] Comment on above: Performed By: #### C MP #### [facility] [address] [address] [address] Hilaria Reynolds EGFR-AF NORWEGIAN >60 Normal >=60 [facility] Comment on above: Performed By: #### C MP #### [facility] [address] [address] [address] Hilaria Reynolds EGFR-NON AF NORWEGIAN >60 Normal >=60 [facility] Comment on above: Performed By: #### C MP #### [facility] [address] [place] [address] Dr. Hilaria Reynolds Globulin (S) [Mass/Vol] 3.2 g/dL Normal [facility] Comment on above: Performed By: #### C MP #### [facility] [address] [address] [address] Hilaria Reynolds Glucose [Mass/Vol] 107 mg/dL Critically high 74-106 [facility] Comment on above: Performed By: #### C MP #### [facility] [address] [place] [address] Dr. Hilaria Reynolds Potassium [Moles/Vol] 3.7 mmol/L Normal 3.4-5.0 [facility] Comment on above: Performed By: #### C MP #### [facility] [address] [place] [address] Dr. Hilaria Reynolds Protein [Mass/Vol] 7.6 g/dL Normal 6.1-8.2 [facility] Comment on above: Performed By: #### C MP #### [facility] [address] [place] [address] Dr. Hilaria Reynolds Sodium [Moles/Vol] 141 mmol/L Normal 137-145 [facility] Comment on above: Performed By: #### C MP #### [facility] [address] [address] [address] Hilaria Reynolds Urea nitrogen [Mass/Vol] 18.0 mg/dL Normal 9.0-20.0 [facility] Comment on above: Performed By: #### C MP #### [facility] [address] [place] [address] Dr. Hilaria Reynolds Urea nitrogen/Creatinine [Mass ratio] 16.5 mg/mg Normal [facility] Comment on above: Performed By: #### C MP #### [facility] [address] [place] [address] Dr. Hilaria Reynolds Vital Signs Date Time Vital Sign Value Performing Clinician Facility 06-11-2021 14:45-0500 Body height 187.96 cm Steph Ginty Other [facility] Other 06-11-2021 14:45-0500 Body mass index (BMI) [Ratio] 26.96 kg/m2 Steph Ginty [facility] Other 06-11-2021 14:45-0500 Body temperature 98.7 [degF] Steph Ginty Other [facility] Other 06-11-2021 14:45-0500 Body weight 95.26 kg Steph Ginty Other [facility] Other 06-11-2021 14:45-0500 SaO2% (BldA) [Mass fraction] 99 % Steph Ginty Other [facility] Other Encounters Encounter Date Encounter Type Care Provider Facility Start: 04-20-2023 ambulatory Barry Salamanca acility:[facility] Start: 12-18-2022 End: 12-19-[address] [facility] Facility:[facility] Start: 10-10-2022 End: 10-11-[address] [facility] Start: 05-12-2022 End: 05-12-2022 Emergency department patient visit Sanjeev Toribio Facility:[facility] Start: 06-11-2021 End: 06-11-2021 ambulatory Steph Ginty Other [facility] Other Start: 06-11-2021 Office outpatient visit 15 minutes Steph Ginty [facility] Start: 05-16-2021 End: 05-16-[address] KESHAWN BURNS Facility: Payers Date Payer Category Payer Self-pay 1990 Unknown [id number] 2.16.84 [id number] 1990 Unknown [id number] 2.16.8 [id number] 1990 Unknown [id number] 2.16.8 [id number] 1988 Unknown [id number] 2.16.8 [id number] 1959 Unknown [id number] Unknown [id number] Unknown [id number] 2.16.8 [id number] Social History Date Type Detail Facility Sex Assigned At [facility] Other Evaluation note 06-11-2021 Note Date & [...] Patient care instructions given in writting by [facility] document [facility] Other History general Narrative - Reported Note Date & Type Note Facility History general Narrative - Reported Type Medical History chronic diarrhea Surgical History wisdom teeth [employer] [facility] Other Summary Purpose Family History No Family History Records FoundNo Family History Records FoundNo Family History Records Found Advance Directives No Advanced Directives Records FoundNo Advanced Directives Records FoundNo Advanced Directives Records Found Additional Source Comments (unrecognized sect ion and content) No Status Records FoundNo Status Records FoundNo Status Records Found INFORMATION SOURCE (unrecogn ized section and content) DATE CREATED AUTHOR [facility]/11/2021 [facility] DATE CREATED AUTHOR AUTHOR'S ORGANIZ ATION 12/18/2022 [facility] DATE CREATED AUTHOR AUTHOR'S ORGANIZ ATION 07/03/2023 [facility] REASON FOR VISIT (unrecogniz ed section and [...] BE BASED ON THE PRIMARY CLINICAL RECORDS. [employer] provides no warranty or guarantee of the accuracy or completeness of information in this document.
--- NOTE | 2024-03-07 19:43 | ED.DENTAL1 ---
HPI - Dental/Oral General Chief complaint: Dental/Oral Stated complaint: TOOTH ABCESS, IN EARLIER-WORSENING Time Seen by Provider: 03/07/24 19:39 Source: patient Mode of arrival: walk-in Limitations: no limitations History of Present Illness HPI Narrative: seen this AM in the ER with dental abscess. Prescribed amoxicillin 500 tid. Took one dose of Amoxicillin and fell asleep. Woke up with increased swelling of his face. no throat pain or difficulty swallowing. Decided to come back in because of the increased swelling. No fever Related Data Previous Rx's ?Medication ?Instructions ?Recorded amoxicillin 500 mg capsule 500 mg PO TID 10 days #30 caps 10/06/23 hydrocodone 5 mg-acetaminophen 325 1 tab PO Q6H PRN pain 3 days #12 10/06/23 mg tablet tabs ketorolac 10 mg tablet 10 mg PO TID PRN pain #10 tabs 10/06/23 amoxicillin 500 mg capsule 500 mg PO TID 7 days #21 caps 03/07/24 ibuprofen 800 mg tablet 800 mg PO Q8H PRN pain #20 tabs 03/07/24 oxycodone-acetaminophen 5 mg-325 1 tab PO Q6H PRN pain #8 tabs 03/07/24 mg tablet (Percocet) Allergies Allergy/AdvReac Type Severity Reaction Status Date / Time No Known Drug Allergies Allergy Verified 03/07/24 18:49 Review of Systems ROS Status of ROS 10 or more systems reviewed and unremarkable except as noted in history and below PFSH PFSH Social History Little interest or pleasure in doing things: not at all Feeling down, depressed, or hopeless: not at all Exam Constitutional Vital Signs, click to edit/add: Last Vital Signs Temp 97.8 F 03/07/24 18:49 Pulse 66 03/07/24 18:49 Resp 20 03/07/24 18:49 BP 131/60 03/07/24 18:49 Pulse Ox 100 03/07/24 18:49 O2 Del Method Room Air 03/07/24 18:49 Common normals: no apparent distress, average body habitus, oriented x3, no limitations, healthy appearing, alert and well nourished [facility] Head images:  1. mild facial swelling Other: right upper molar dental caries Eye Common normals: EOMs intact bilaterally and conjunctivae normal Respiratory Common normals: normal respiratory effort, no retractions and no use of accessory muscles Cardio Common normals: regular rate, regular rhythm, S1 normal heart sound and S2 normal heart sound Extremity Common normals: normal to inspection and full ROM Neuro Common normals: oriented x3, CN's II-XII intact bilaterally, moves all extremities and no focal motor deficits Psych Appearance: grossly normal Course Vital Signs Vital signs: Vital Signs Temperature 97.8 F 03/07/24 18:49 Pulse Rate 66 03/07/24 18:49 Respiratory Rate 20 03/07/24 18:49 Blood Pressure 131/60 03/07/24 18:49 Pulse Oximetry 100 03/07/24 18:49 Oxygen Delivery Method Room Air 03/07/24 18:49 Temperature 97.8 F 03/07/24 18:49 Pulse Rate 66 03/07/24 18:49 Respiratory Rate 20 03/07/24 18:49 Blood Pressure 131/60 03/07/24 18:49 Pulse Oximetry 100 03/07/24 18:49 Oxygen Delivery Method Room Air 03/07/24 18:49 MDM - Dental/Oral MDM Narrative Medical decision making narrative: seen today in the ER for same problem. Prescribed amoxicillin 500 tid and took one dose and fell asleep. Woke up with increased swelling and decided to come back in. Does have swelling to just beneath the right eye. also obvious dental caries associated with the swelling. Remaining exam unremarkable. Patient given dose of rocephin and solumedrol and discharged home. Advised to continue prescriptions provided for him earlier and follow up with his dentist Discharge Plan Discharge Chief Complaint: Dental/Oral Clinical Impression: Dental abscess Patient Disposition: Home, Self-Care Prescriptions / Home Meds: No Action amoxicillin 500 mg capsule 500 mg PO TID 10 Days Qty: 30 0RF hydrocodone-acetaminophen 5-325 mg tablet 1 tab PO Q6H PRN (Reason: pain) 3 Days Qty: 12 0RF Rx Instructions: DX: K08.89 ketorolac 10 mg tablet 10 mg PO TID PRN (Reason: pain) Qty: 10 0RF amoxicillin 500 mg capsule 500 mg PO TID 7 Days Qty: 21 0RF ibuprofen 800 mg tablet 800 mg PO Q8H PRN (Reason: pain) Qty: 20 0RF oxycodone-acetaminophen [Percocet] 5-325 mg tablet 1 tab PO Q6H PRN (Reason: pain) Qty: 8 0RF Print Language: Tamazight Instructions: Dental Abscess (ED) Additional Instructions: follow up with your dentist this week Referrals: Physician,Non-Staff, MD [Primary Care Provider] - 1 week
[2024-03-07] MEDS: CEFTRIAXONE 1,000 MG in 0.9 % SODIUM CHLORIDE 50 ML 100 MG IV (19:56)
[2024-03-07] MEDS: METHYLPREDNISOLONE SOD SUCC PF 125 MG/2 ML VIAL IVP (19:56)
== END 2024-03-07 20:35 | disposition home or self-care (01) ==
PROVIDERS: Emergency Provider Internal Medicine
DX: K04.7 Periapical abscess without sinus (principal)
CPT/HCPCS: 96365; 96375; 99284; J0696; J2919

== ENCOUNTER 2025-04-08 22:51 | Emergency (ER) | payer OTHER, SELFPAY ==
--- OUTSIDE RECORDS SUMMARY | 2023-07-02 07:45 | XMS_ITS | Continuity of Care Document ---
Author Organization [facility] Address [address] [place] [address] Phone Care Team Providers Care Rubber Flap Cutter Name Role Phone Issac Tuttle DMD Unavailable Unavailable Allergies, Adverse Reactions, Alerts Substance Reaction Status Criticality No Known Allergies Active No Inform ation Medications Medication Instructions Dosage Effective Dates (start - stop) Status Comments ibuprofen 800 mg tablet take 1 tablet by oral route 3 times every day with food as needed 800 MG - Active Tylenol Extra Strength 500 mg tablet take 2 tablet by oral route every 6 hours as needed 1000 MG - Active amoxicillin 500 mg capsule take 1 capsule by oral route every 8 hours 500 MG - No Longer Active amoxicillin 500 mg capsule take 1 capsule by oral route every 8 hours 500 MG - No Longer Active ibuprofen 200 mg capsule take 1 capsule by oral route every 6 hours as needed 200 MG - No Longer Active Procedures Procedure Date Bitewig-single Film Intraoral-periapical 1st Film 4 Limited Oral Eval Intraoral-periapical 1st Film 3 Limited Oral Eval Extraction Surgical/erupt Tooth 023 No Charge Post Op Visit Dental Extract; Erupted Th/exposted Rt 014 Panoramic Film Limited Oral Eval Advance Directives Directive Yes / No Effective Date File Name No Information Encounters Encounter Description Practice Location Reason(s) For Visit Diagnoses Date Provider Providers Copied on Encounter [facility], [address] [place], [place], [id number], [place] tel:[phone] Dental Clinic dl (chief complaint) Encounter for screening for dental disordersBody mass index [BMI] 29.0-29.9, adult Marry Davenport. [address] [place], [place], [id number], [place]. tel:[phone] [facility], [address] [place], [place], [id number], [place] tel:[phone] Dental Clinic Dental limited (chief complaint) Encounter for screening for dental disorders Esperanza ALMONTE Hilario. [address] [place], [address], [place]. tel:[phone] [facility], [address] [place], [place], [id number], [place] tel:[phone] Dental Clinic Dental examination Feliciano DMD August. [address] [place], [place], [id number], [place]. tel:[phone] [facility], [address] [place], [place], [id number], [place] tel:[phone] Dental Clinic Dental examination Feliciano DMD August. [address] [place], [place], [id number], [place]. tel:[phone] [facility], [address] [place] [address], [id number], [place] tel:[phone] Dental Clinic Dental examination Feliciano DMD August. [address] [place], [place], [id number], [place]. tel:[phone] Family History Family Member Type Diagnosis Age At Onset No Information Payers Payer name Insurance type Covered green party ID Authormariaa yessica(s) Self Pay Cap [id number] Social History Type Description Quantity Date Captured Comments Alcohol Use Details Unknown Caffeine Use Details Unknown Tobacco Use Status No Information Smoking Status No Information Sex Male Sexual Orientation Straight or heterosexual Gender Identity Male Mar-23-2023 Vital Signs Date / Time: Height Weight BMI Pulse Rate Blood Pressure Temperature Respiratory Rate Body Surface Area Head Circumference Head Circ. Percentile Wt./[place]. Percentile BMI percentile Pulse Ox Inhaled Ox 2:37 PM 71.00 in 95.254 kg (210.00 lbs) 29.2 9 kg/m eter (2) 78 /min 121/78 mm[Hg] 97.80 F Chief Complaint And Reason For Visit From encounter dated 07/02/2023 12:45'. dl (chief complaint). Description: dl Reason For Referral Reason For Referral No Information Plan Of Treatment Date Type Action Status Goal HPV. Due on due Goal PRAPARE ASSESSMENT. Due on due Goal Hepatitis C screening. Due o n due Goal Influenza vaccine. Due on due Goal Unhealthy drug use screening . Due on due Goal Tdap. Due on due Goal Depression screening. Due on due Goal RLP. Due on due Goal Tdap Vaccine. Due on 2023 due Goal Dietary management education , guidance, and counseling completed Goal Tdap Vaccine. Due on 2022 due Goal Depression screening. Due on due Goal Influenza vaccine. Due on due Goal PRAPARE ASSESSMENT. Due on A due Goal RLP. Due on due Goal Hep A. Due on du e Goal Tdap. Due on due History Of Present Illness Encounter Date Complaint History Of Prese nt Illness dl dl Dental limited Dental limited, LR tooth pain, pain level 8 Functional Status Date Functional Assessmen t No Information Instructions Date Instruction Additional Infor sarah Giving encouragement to exercise Related to Body mass index [BMI] 29.0-29.9, adult Dietary management e ducation, guidance, and counseling Related to Body mass index [BMI] 29.0-29.9, adult Assessments Type Assessment Date assessment Encounter for screening for dent al disorders assessment Body mass index [BMI] 29.0-29.9, adult Patient Care Teams Name Effective Dates (start - stop) Status Members No Information
--- OUTSIDE RECORDS SUMMARY | 2023-07-02 07:45 | XMS_ITS | Continuity of Care Document ---
Author Organization [facility] Address [address] [place] [address] Phone Care Team Providers Care Java Golden Gate Developer Name Role Phone Issac Tuttle DMD Unavailable [...] Diagnoses Date Provider Providers Copied on Encounter [facility], [address] [place], [place], [id number], [place] tel:[phone] Dental Clinic dl (chief complaint) Encounter for screening for dental disordersBody mass index [BMI] 29.0-29.9, adult Marry Davenport. [address] [place], [place], [id number], [place]. tel:[phone] [facility], [address] [place], [place], [id number], [place] tel:[phone] Dental Clinic Dental limited (chief complaint) Encounter for screening for dental disorders Esperanza ALMONTE Hilario. [address] [place], [address], [place]. tel:[phone] [facility], [address] [place], [place], [id number], [place] tel:[phone] Dental Clinic Dental examination Feliciano DMD August. [address] [place], [place], [id number], [place]. tel:[phone] [facility], [address] [place], [place], [id number], [place] tel:[phone] Dental Clinic Dental examination Feliciano DMD August. [address] [place], [place], [id number], [place]. tel:[phone] [facility], [address] [place] [address], [id number], [place] tel:[phone] Dental Clinic Dental examination Feliciano DMD August. [address] [place], [place], [id number], [place]. tel:[phone] Family History Family Member Type Diagnosis Age At Onset No Information Payers Payer name Insurance type Covered republican ID Authormairaa yessica(s) Self Pay Cap [id number] Social History Type Description Quantity Date Captured [...]
--- OUTSIDE RECORDS SUMMARY | 2023-07-02 07:45 | XMS_ITS | Continuity of Care Document ---
Author Organization [facility] Address [address] [place] [address] Phone Care Team Providers Care Range Manager Name Role Phone Issac Tuttle DMD Unavailable [...] Diagnoses Date Provider Providers Copied on Encounter [facility], [address] [place], [place], [id number], [place] tel:[phone] Dental Clinic dl (chief complaint) Encounter for screening for dental disordersBody mass index [BMI] 29.0-29.9, adult Marry Davenport. [address] [place], [place], [id number], [place]. tel:[phone] [facility], [address] [place], [place], [id number], [place] tel:[phone] Dental Clinic Dental limited (chief complaint) Encounter for screening for dental disorders Esperanza ALMONTE Hilario. [address] [place], [address], [place]. tel:[phone] [facility], [address] [place], [place], [id number], [place] tel:[phone] Dental Clinic Dental examination Feliciano DMD August. [address] [place], [place], [id number], [place]. tel:[phone] [facility], [address] [place], [place], [id number], [place] tel:[phone] Dental Clinic Dental examination Feliciano DMD August. [address] [place], [place], [id number], [place]. tel:[phone] [facility], [address] [place] [address], [id number], [place] tel:[phone] Dental Clinic Dental examination Feliciano DMD August. [address] [place], [place], [id number], [place]. tel:[phone] Family History Family Member Type Diagnosis Age At Onset No Information Payers Payer name Insurance type Covered libertarian ID Authormairaa yessica(s) Self Pay Cap [id number] Social History Type Description Quantity Date Captured [...]
--- OUTSIDE RECORDS SUMMARY | 2023-07-02 07:45 | XMS_ITS | Continuity of Care Document ---
Author Organization [facility] Address [address] [place] [address] Phone Care Team Providers Care Lap Checker Name Role Phone Issac Tuttle DMD Unavailable [...] Diagnoses Date Provider Providers Copied on Encounter [facility], [address] [place], [place], [id number], [place] tel:[phone] Dental Clinic dl (chief complaint) Encounter for screening for dental disordersBody mass index [BMI] 29.0-29.9, adult Marry Davenport. [address] [place], [place], [id number], [place]. tel:[phone] [facility], [address] [place], [place], [id number], [place] tel:[phone] Dental Clinic Dental limited (chief complaint) Encounter for screening for dental disorders Esperanza ALMONTE Hilario. [address] [place], [address], [place]. tel:[phone] [facility], [address] [place], [place], [id number], [place] tel:[phone] Dental Clinic Dental examination Feliciano DMD August. [address] [place], [place], [id number], [place]. tel:[phone] [facility], [address] [place], [place], [id number], [place] tel:[phone] Dental Clinic Dental examination Feliciano DMD August. [address] [place], [place], [id number], [place]. tel:[phone] [facility], [address] [place] [address], [id number], [place] tel:[phone] Dental Clinic Dental examination Feliciano DMD August. [address] [place], [place], [id number], [place]. tel:[phone] Family History Family Member Type Diagnosis Age At Onset No Information Payers Payer name Insurance type Covered constitution party ID Authormairaa yessica(s) Self Pay Cap [id number] Social History Type Description Quantity Date Captured [...] Of Treatment Date Type Action Status Goal Tdap Vaccine. Due on 2023 due Goal RLP. Due on due Goal Depression screening. Due on due Goal Tdap. Due on due Goal Unhealthy drug use screening . Due on due Goal Influenza vaccine. Due on due Goal Hepatitis C screening. Due o n due Goal PRAPARE ASSESSMENT. Due on due Goal HPV. Due on due Goal Dietary management education [...]
--- OUTSIDE RECORDS SUMMARY | 2023-07-02 07:45 | XMS_ITS | Continuity of Care Document ---
Author Organization [facility] Address [address] [place] [address] Phone Care Team Providers Care Laborer Tan House Name Role Phone Issac Tuttle DMD Unavailable [...] Diagnoses Date Provider Providers Copied on Encounter [facility], [address] [employer], [place], [id number], [place] tel:[phone] Dental Clinic dl (chief complaint) Encounter for screening for dental disordersBody mass index [BMI] 29.0-29.9, adult Marry Davenport. [address] [place], [place], [id number], [place]. tel:[phone] [facility], [address] [employer], [address], [place] tel:[phone] Dental Clinic Dental limited (chief complaint) Encounter for screening for dental disorders Esperanza ALMONTE Hilario. [address] [place], [address], [place]. tel:[phone] [facility], [address] [employer], [id number], [place] tel:[phone] Dental Clinic Dental examination Feliciano DMD August. [address] [employer], [place], [id number], [place]. tel:[phone] [facility], [address] [employer], [id number], [place] tel:[phone] Dental Clinic Dental examination Feliciano DMD August. [address] [employer], [id number], [place]. tel:[phone] [facility], [address] [place] [address], [id number], [place] tel:[phone] Dental Clinic Dental examination Feliciano DMD August. [address] [employer], [id number], [place]. tel:[phone] Family History Family Member Type Diagnosis Age At Onset No Information Payers Payer name Insurance type Covered constitution party ID Authormairaa yessica(s) Self Pay Cap [id number] Social History Type Description Quantity Date Captured [...]
[2025-04-08] VITALS (9 sets, daily range): BP systolic 97–121; BP diastolic 67–83; PULSE 87–102; TEMP 36.7; O2SAT 98–99; BMI 31.7
--- OUTSIDE RECORDS SUMMARY | 2025-04-08 22:59 | XMS_ITS | Clinical Summary ---
Author Organization [facility] Address [address] [place], [place] [id number] Care Team Providers Care Elocution Teacher Name Role Phone Cristi Prasad DO Primary Care Provider [phone] Medications No known medications Active Problems No known active problems Social History Tobacco UseTypesPacks/DayYears UsedDateSmoking Tobacco: NeverArea Deprivation IndexAnswerDate RecordedNational Score (1-100), lower number is lower riskNot on file05/29/2020tate Score (1-10), lower number is lower riskNot on file 1Data from: https://www.neighborhoodatlas.[facility]/. Last address used for calculationNot on file05/29/2020ex and Gender InformationValue Date RecordedSex Assigned at BirthNot on fileLegal LlqWmdx8711/17/2014 10:50 AM EDTGender IdentityNot on fileSexual OrientationNot on file Last Filed Vital Signs Vital SignReadingTime TakenCommentsBlood Pressure--Pulse--Lkfofddakfn61.8 ??C (100.1 ??F)05/29/2020 12:23 PM ESTRespiratory Rate--Oxygen Saturation--Inhaled Oxygen Concentration--Weight--Height--Body Mass Index-- Plan of Treatment Health MaintenanceDue DateLast DoneCommentsAnxiety Grugnpfzr50/21/2007Depression Eeclbaceq56/21/2007HIV Wcrsfykrt54/21/2007Hepatitis C Tbptduxee47/21/2007 DTaP,Tdap,Td Vaccine (1 - Tdap)2007Hepatitis B Vaccine (1 of 3 - 19+ 3- dose series)2007HPV Vaccine (1 - 3-dose SCDM series)2015Lipid Shmuswduq32/21/2024Covid-19 Vaccine ( season)2025Influenza Vaccine (#1)2025 Care Teams Team MemberRelationshipSpecialtyStart DateEnd Date Cristi Prasad DO PCP - GeneralFamily Medicine11/17/14
--- OUTSIDE RECORDS SUMMARY | 2025-04-08 22:59 | XMS_ITS | Patient Health Record ---
Author Organization [facility] Address [address] [place] [address] Care Team Providers Care Special Police Name Role Phone Dr. Seth Arreola Primary Care Provider Reason For Referral No Information Medications Medication SIG (Take, Route, Frequency, Duration) Notes Start Date End Date Status Ibuprofen 800 MG Tablet 1 tablet with fo od or milk as needed Orally Three times a day 1Active Plan Of Treatment No Information Insurance Providers Payer Name Payer Address Payer Phone Subscriber Number Group Number Insured Name Patient Relationship to Insured Coverage Start Date Coverage End Date [employer] [address] [address] [place] [address] [id number] SETHJUDSONSHERINE SINGERDIOMEDESmoreno - patient is the [id number] 2020zDENTAL DQ [employer]- termed [address] [place] [id number], SHERINEDIOMEDESmoreno - patient is the [id number] 2020zDental MEDICAID C after [employer]-termed [address] [place] [address] [id number], SHERINEDIOMEDESmoreno - patient is the insured 1DENTAL [employer] [address] [address] [place] [phone] [id number], SHERINEDIOMEDESmoreno - patient is the [id number] 2020
--- NOTE | 2025-04-08 23:06 | ECG_ITS ---
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 Measurements Intervals [place] Rate: 96 P: 57 PA: 104 QRS: 72 QRSD: 90 T: 30 QT: 346 QTc: 400 Interpretive Statements 1100 Sinus rhythm 2210 Short PA interval Nonspecific T wave changes 9150 abnormal ECG Compared to ECG 05/16/2021 09:16:50 Short PA interval now present Electronically Signed On 04-09-2025 6:42:53 EST by DAVONTE DUNN M.D.
[2025-04-08 23:12] LABS: Hematocrit 41.4 % (42.0-54.0); Hemoglobin 14.5 g/dL (14.0-18.0); Immature Granulocytes Abs Auto 0.01 10^3/uL (0.00-0.03); Immature Granulocytes Pct Auto 0.2 % (0.0-0.5); Lymphocytes Absolute Auto 2.0 10^3/uL (1.2-3.8); Mean Corpuscular HGB Conc 35.0 g/dL (29.9-35.2); Mean Corpuscular Hemoglobin 32.2 pg (25.9-34.0); Mean Corpuscular Volume 91.8 fL (80.0-94.0); Platelet Count 286 10^3/uL (150-450); Red Blood Count 4.51 10^6/uL (4.70-6.10); White Blood Count 5.9 10^3/uL (4.0-11.0)
--- NOTE | 2025-04-08 23:13 | ED.GENADUL1 ---
HPI HPI - General Adult General Chief complaint: Chest Pain Stated complaint: Chest Pain Time Seen by Provider: 04/08/25 22:55 Source: patient Mode of arrival: walk-in Limitations: no limitations History of Present Illness HPI narrative: 34-year-old male presents to the emergency department for chest pain. He has been having this on and off for 3 days. There is been no injury or fever. No cough or shortness of breath or back pain. He states its from the right side of his sternum across to the left side of his chest. Related Data Home Medications ?Medication ?Instructions ?Recorded ?Confirmed No Known Home Medications 04/08/25 04/08/25 Allergies Allergy/AdvReac Type Severity Reaction Status Date / Time No Known Drug Allergies Allergy Verified 03/07/24 18:49 Opioid HPI Opioid Management Most Recent Opioid Data: Last Pain Scale 6 04/08/25, 23:46 Review of Systems ROS Narrative A ten point review of systems is negative except as noted above. PFSH PFSH Social History Little interest or pleasure in doing things: not at all Feeling down, depressed, or hopeless: not at all Exam Narrative Exam Narrative: Nurses note and vital signs reviewed General:The patient appears well and in no apparent distress. Patient is resting comfortably on cart. Skin:Warm, dry, no pallor noted.There is no rash noted. Head:Normocephalic, atraumatic Eye: Normal conjunctiva, no drainage Ears, Nose, Mouth, and Throat: oral mucosa is moist. Nares patent. Cardiovascular:Regular Rate and Rhythm Respiratory:Patient is in no distress, no accessory muscle use, lungs are clear to auscultation, no wheezing, rales or rhonchi Back:non-tender GI: Soft and nontender Musculoskeletal: The patient has no evidence of calf tenderness, no pitting edema, symmetrical pulses noted bilaterally Neurological:A&O, normal speech Psychiatric:Cooperative Constitutional Vital Signs, click to edit/add: Last Vital Signs Temp 98.1 F 04/08/25 22:54 Pulse 94 H 04/08/25 23:40 Resp 12 04/08/25 23:40 BP 97/67 04/08/25 23:31 Pulse Ox 99 04/08/25 23:46 O2 Del Method Room Air 04/08/25 23:46 Course Vital Signs Vital signs: Vital Signs Temperature 98.1 F 04/08/25 22:54 Pulse Rate 101 H 04/08/25 22:54 Respiratory Rate 18 04/08/25 22:54 Blood Pressure 121/83 04/08/25 22:54 Pulse Oximetry 98 04/08/25 22:54 Temperature 98.1 F 04/08/25 22:54 Pulse Rate 94 H 04/08/25 23:40 Respiratory Rate 12 04/08/25 23:40 Blood Pressure 97/67 04/08/25 23:31 Pulse Oximetry 99 04/08/25 23:46 Oxygen Delivery Method Room Air 04/08/25 23:46 Medical Decision Making MDM Narrative Medical decision making narrative: His workup including 2 sets of troponin is negative. He was given a GI cocktail and seems to be feeling improved. He was able to sleep here. He will be discharged home and will follow-up with his doctor if symptoms persist. At this point there is no evidence of acute coronary syndrome. Treatment diagnosis and follow-up were discussed with the patient. I have no clinical suspicion of PE. Differential Diagnosis Differential Diagnosis: MS, pneumothorax, GE reflux, PE Lab Data Lab results reviewed: Yes I reviewed the patient's lab results Labs: Lab Results 04/08/25 04/08/25 Range/Units 23:04 23:53 WBC 5.9 (4.0-11.0) 10^3/uL RBC 4.51 L (4.70-6.10) 10^6/uL Hgb 14.5 (14.0-18.0) g/dL Hct 41.4 L (42.0-54.0) % MCV 91.8 (80.0-94.0) fL MCH 32.2 (25.9-34.0) pg MCHC 35.0 (29.9-35.2) g/dL RDW 12.5 (11.0-15.0) % Plt Count 286 (150-450) 10^3/uL MPV 9.0 L (9.5-13.5) fL Neut % (Auto) 53.3 (43.0-75.0) % Lymph % (Auto) 34.2 (20.5-60.0) % Carbon % (Auto) 8.0 (1.7-12.0) % Eos % (Auto) 3.6 (0.9-7.0) % Baso % (Auto) 0.7 (0.2-2.0) % Neut # (Auto) 3.1 (1.4-6.5) 10^3/uL Lymph # (Auto) 2.0 (1.2-3.8) 10^3/uL Carbon # (Auto) 0.5 (0.3-0.8) 10^3/uL Eos # (Auto) 0.2 (0.0-0.7) 10^3/uL Baso # (Auto) 0.0 (0.0-0.1) 10^3/uL Abs Immat Gran (auto) 0.01 (0.00-0.03) 10^3/uL Imm/Tot Granulo (auto) 0.2 (0.0-0.5) % Sodium 144 (136-145) mmol/L Potassium 3.7 (3.5-5.1) mmol/L Chloride 107 (98-107) mmol/L Carbon Dioxide 29.5 (21.0-32.0) mmol/L Anion Gap 11.2 BUN 11.0 (7.0-18.0) mg/dL Creatinine 1.11 (0.70-1.30) mg/dL Est GFR ( Amer) >60 (>=60 mL/min/1.73m^2) Est GFR (Non-Af Amer) >60 (>=60 mL/min/1.73m^2) BUN/Creatinine Ratio 9.9 Glucose 114 H (74-106) mg/dL Calcium 8.7 (8.5-10.1) mg/dL Troponin I High Sens <4.0 L <4.0 L (4.0-76.1) pg/mL Imaging Data Chest x-ray: My impression: No acute findings ECG Data Attestation: I personally reviewed and interpreted this ECG as follows: (EKG on my interpretation shows sinus rhythm with rate of 96 and no acute change) Discharge Plan Discharge Chief Complaint: Chest Pain Clinical Impression: Chest pain Patient Disposition: Home, Self-Care Time of Disposition Decision: 00:44 Condition: Good Mode of Transportation: Private Vehicle Prescriptions / Home Meds: No Action No Known Home Medications Print Language: Indonesian Instructions: Chest Pain (ED) Referrals: Physician,Non-Staff, MD [Primary Care Provider] - 1 week
[2025-04-08 23:27] LABS: Anion Gap 11.2; Blood Urea Nitrogen 11.0 mg/dL (7.0-18.0); Calcium 8.7 mg/dL (8.5-10.1); Carbon Dioxide 29.5 mmol/L (21.0-32.0); Chloride 107 mmol/L (98-107); Estimated GFR (African America >60 (>=60 mL/min/1.73m^2); Estimated GFR (Non-African Ame >60 (>=60 mL/min/1.73m^2); Glucose 114 mg/dL (74-106); Potassium 3.7 mmol/L (3.5-5.1); Sodium 144 mmol/L (136-145)
[2025-04-09 01:02] VITALS: BP 99/78; PULSE 89; O2SAT 99
== END 2025-04-09 01:05 | disposition home or self-care (01) ==
PROVIDERS: Emergency Provider Emergency Medicine
DX: R07.9 Chest pain, unspecified (principal)
CPT/HCPCS: 36415; 71045; 80048; 84484; 85025; 93005; 99285

== ENCOUNTER 2025-04-26 08:08 | Emergency (ER) | payer OTHER, SELFPAY ==
--- OUTSIDE RECORDS SUMMARY | 2023-07-02 07:45 | XMS_ITS | Continuity of Care Document ---
Author Organization [facility] Address [address] [place] [address] Phone Care Team Providers Care Passenger Service Supervisor Name Role Phone Issac Tuttle DMD Unavailable [...] Diagnoses Date Provider Providers Copied on Encounter [facility], [address] [place], [place], [id number], [place] tel:[phone] Dental Clinic dl (chief complaint) Encounter for screening for dental disordersBody mass index [BMI] 29.0-29.9, adult Marry Davenport. [address] [place], [place], [id number], [place]. tel:[phone] [facility], [address] [place], [place], [id number], [place] tel:[phone] Dental Clinic Dental limited (chief complaint) Encounter for screening for dental disorders Esperanza ALMONTE Hilario. [address] [place], [address], [place]. tel:[phone] [facility], [address] [place], [place], [id number], [place] tel:[phone] Dental Clinic Dental examination Feliciano DMD August. [address] [place], [place], [id number], [place]. tel:[phone] [facility], [address] [place], [place], [id number], [place] tel:[phone] Dental Clinic Dental examination Feliciano DMD August. [address] [place], [place], [id number], [place]. tel:[phone] [facility], [address] [place] [address], [id number], [place] tel:[phone] Dental Clinic Dental examination Feliciano DMD August. [address] [place], [place], [id number], [place]. tel:[phone] Family History Family Member Type Diagnosis Age At Onset No Information Payers Payer name Insurance type Covered alliance party ID Authormairaa yessica(s) Self Pay Cap [id number] Social History Type Description Quantity Date Captured [...] Of Treatment Date Type Action Status Goal Hepatitis C screening. Due o n due Goal PRAPARE ASSESSMENT. Due on due Goal HPV. Due on due Goal Tdap Vaccine. Due on 2023 due Goal RLP. Due on due Goal Depression screening. Due on due Goal Tdap. Due on due Goal Unhealthy drug use screening . Due on due Goal Influenza vaccine. Due on due Goal Dietary management education , guidance, and counseling completed Goal Tdap. Due on due Goal Hep A. Due on du e Goal RLP. Due on due Goal PRAPARE ASSESSMENT. Due on A due Goal Influenza vaccine. Due on due Goal Depression screening. Due on due Goal Tdap Vaccine. Due on 2022 due History Of Present Illness Encounter Date [...]
[2025-04-26 08:12] VITALS: BP 123/73; PULSE 79; TEMP 36.7; O2SAT 98; BMI 32.3
--- NOTE | 2025-04-26 08:22 | ED.GENADUL1 ---
HPI HPI - General Adult General Chief complaint: Back Pain/Injury Stated complaint: rib pain - fall 04/26/25 Time Seen by Provider: 04/26/25 08:18 History of Present Illness HPI narrative: 34-year-old male presented to the emergency department for a complaint of left lower rib pain and left lower back pain. This morning he fell on ice and hit a step. This occurred at his home. He did not hit his head. He is worried about a broken rib. No complaints of shortness of breath. No neck pain or headache. Related Data Previous Rx's ?Medication ?Instructions ?Recorded ibuprofen 800 mg tablet 800 mg PO Q8H PRN pain #20 tabs 04/26/25 Allergies Allergy/AdvReac Type Severity Reaction Status Date / Time No Known Drug Allergies Allergy Verified 03/07/24 18:49 Opioid HPI Opioid Management Most Recent Opioid Data: Last Pain Scale 6 04/08/25, 23:46 Review of Systems ROS Narrative A ten point review of systems is negative except as noted above. PFSH PFSH Social History Little interest or pleasure in doing things: not at all Feeling down, depressed, or hopeless: not at all Exam Narrative Exam Narrative: Nurses note and vital signs reviewed General:The patient appears well and in no apparent distress.Patient is resting comfortably on cart, sitting upright. Skin:Warm, dry, no pallor noted.There is no rash noted. Head:Normocephalic, atraumatic Eye: Normal conjunctiva, no drainage Ears, Nose, Mouth, and Throat: oral mucosa is moist. Nares patent. Cardiovascular:Regular Rate and Rhythm Respiratory:Patient is in no distress, no accessory muscle use, lungs are clear to auscultation, no wheezing, rales or rhonchi. Breath sounds are equal Back: No bruise or abrasion. He has diffuse tenderness in the left posterior lower rib area going into the left lumbar area. GI: Soft and nontender Musculoskeletal: Arms and legs have full range of motion. Neurological:A&O, normal speech Psychiatric:Cooperative Constitutional Vital Signs, click to edit/add: Last Vital Signs Temp 98.1 F 04/26/25 08:12 Pulse 79 04/26/25 08:12 Resp 18 04/26/25 08:12 BP 123/73 04/26/25 08:12 Pulse Ox 98 04/26/25 08:12 O2 Del Method Room Air 04/26/25 08:12 Course Vital Signs Vital signs: Vital Signs Temperature 98.1 F 04/26/25 08:12 Pulse Rate 79 04/26/25 08:12 Respiratory Rate 18 04/26/25 08:12 Blood Pressure 123/73 04/26/25 08:12 Pulse Oximetry 98 04/26/25 08:12 Oxygen Delivery Method Room Air 04/26/25 08:12 Temperature 98.1 F 04/26/25 08:12 Pulse Rate 79 04/26/25 08:12 Respiratory Rate 18 04/26/25 08:12 Blood Pressure 123/73 04/26/25 08:12 Pulse Oximetry 98 04/26/25 08:12 Oxygen Delivery Method Room Air 04/26/25 08:12 Medical Decision Making MDM Narrative Medical decision making narrative: Rib x-rays and lumbar x-rays are negative per radiologist. He will be treated with ibuprofen. Treatment diagnosis and follow-up were discussed with the patient. Differential Diagnosis Differential Diagnosis: Rib contusion, rib fracture Imaging Data Rib x-ray, lumbar x-ray: Radiologist's impression: ITS Impressions Lumbar Spine X-Ray 04/26/25 08:44 IMPRESSION: NO ACUTE BONY INJURY. PA CHEST WITH LEFT RIBS: COMPARISON: 03/18/2019 and 04/08/2025 The chest film shows no infiltrate, effusion or pneumothorax. The cardiac, hilar and mediastinal silhouettes are within normal limits. No vascular congestion is seen. There is subtle dextroscoliotic curvature. AP and both oblique views of the left ribs show no acute displaced fractures or bony destruction. IMPRESSION: NO ACUTE FINDINGS. Impression dictated by: Columba Espinoza M.D. 04/26/2025 8:56 AM Dictation Location: [place] [address] Electronically authenticated by: [id number] Y Date: 04/26/2025 08:56 Ribs X-Ray 04/26/25 08:44 IMPRESSION: NO ACUTE BONY INJURY. PA CHEST WITH LEFT RIBS: COMPARISON: 03/18/2019 and 04/08/2025 The chest film shows no infiltrate, effusion or pneumothorax. The cardiac, hilar and mediastinal silhouettes are within normal limits. No vascular congestion is seen. There is subtle dextroscoliotic curvature. AP and both oblique views of the left ribs show no acute displaced fractures or bony destruction. IMPRESSION: NO ACUTE FINDINGS. Impression dictated by: Columba Espinoza M.D. 04/26/2025 8:56 AM Dictation Location: [place] [address] Electronically authenticated by: [id number] Y Date: 04/26/2025 08:56 Discharge Plan Discharge Chief Complaint: Back Pain/Injury Clinical Impression: Contusion of ribs Patient Disposition: Home, Self-Care Time of Disposition Decision: 09:18 Condition: Good Mode of Transportation: Private Vehicle Prescriptions / Home Meds: New ibuprofen 800 mg tablet 800 mg PO Q8H PRN (Reason: pain) Qty: 20 0RF Print Language: Belarusian Instructions: Rib Contusion (ED) Referrals: Physician,Non-Staff, MD [Primary Care Provider] - 1 week
--- NOTE | 2025-04-26 08:44 | XR_ITS ---
The [address] [address] Patient Name: CHUCK JHAVERI MRN: [id number] date: 1990 Sex: M Assigned Patient Location: ER Current Patient Location: ED.MAIN Accession/Order Number: [id number] Exam Date: 04/26/2025 08:30 Report Date: 04/26/2025 08:56 At the request of: GRETCHEN MORGAN MD Procedure: XR ribs LT min 3V w CXR1V CLINICAL DATA: Patient fell this morning and has left rib pain LUMBAR SPINE - 2 views COMPARISON: None AP and lateral views were obtained. No compression fracture or displacement is seen. The disc spaces are maintained. No significant hypertrophy is seen. Mild sclerosis is visualized at the SI joints. No paraspinal soft tissue abnormalities are identified. XR/XR lumbar spine 2-3V IMPRESSION: NO ACUTE BONY INJURY. PA CHEST WITH LEFT RIBS: COMPARISON: 03/18/2019 and 04/08/2025 The chest film shows no infiltrate, effusion or pneumothorax. The cardiac, hilar and mediastinal silhouettes are within normal limits. No vascular congestion is seen. There is subtle dextroscoliotic curvature. AP and both oblique views of the left ribs show no acute displaced fractures or bony destruction. IMPRESSION: NO ACUTE FINDINGS. Impression dictated by: Columba Espinoza M.D. 04/26/2025 8:56 AM Dictation Location: [place] [address] Electronically authenticated by: [id number] Y Date: 04/26/2025 08:56
--- NOTE | 2025-04-26 08:44 | XR_ITS ---
The [address] [address] Patient Name: CHUCK JHAVERI MRN: [id number] date: 1990 Sex: M Assigned Patient Location: ER Current Patient Location: ED.MAIN Accession/Order Number: [id number] Exam Date: 04/26/2025 08:30 Report Date: 04/26/2025 08:56 At the request of: GRETCHEN MORGAN MD Procedure: XR ribs LT min 3V w CXR1V CLINICAL DATA: Patient fell this morning and has left rib pain LUMBAR SPINE - 2 views COMPARISON: None AP and lateral views were obtained. No compression fracture or displacement is seen. The disc spaces are maintained. No significant hypertrophy is seen. Mild sclerosis is visualized at the SI joints. No paraspinal soft tissue abnormalities are identified. XR/XR ribs LT min 3V w CXR1V IMPRESSION: NO ACUTE BONY INJURY. PA CHEST WITH LEFT RIBS: COMPARISON: 03/18/2019 and 04/08/2025 The chest film shows no infiltrate, effusion or pneumothorax. The cardiac, hilar and mediastinal silhouettes are within normal limits. No vascular congestion is seen. There is subtle dextroscoliotic curvature. AP and both oblique views of the left ribs show no acute displaced fractures or bony destruction. IMPRESSION: NO ACUTE FINDINGS. Impression dictated by: Columba Espinoza M.D. 04/26/2025 8:56 AM Dictation Location: [place] [address] Electronically authenticated by: [id number] Y Date: 04/26/2025 08:56
--- OUTSIDE RECORDS SUMMARY | 2025-04-26 08:50 | XMS_ITS | Clinical Summary ---
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 Last address used for calculationNot on file05/29/2020ex and Gender InformationValue Date RecordedSex Assigned at BirthNot on fileLegal ErjSpbo4511/17/2014 10:50 AM EDTGender IdentityNot on fileSexual OrientationNot on file Last Filed Vital Signs Vital SignReadingTime TakenCommentsBlood Pressure--Pulse--Tbzujxwuguk76.8 ??C (100.1 ??F)05/29/2020 12:23 PM ESTRespiratory Rate--Oxygen Saturation--Inhaled Oxygen Concentration--Weight--Height--Body Mass Index-- Plan of Treatment Health MaintenanceDue DateLast DoneCommentsAnxiety Rhzbmykqg61/21/2007Depression Fhrthxmvw06/21/2007HIV Iyuygybso53/21/2007Hepatitis C Ljqvoteap08/21/2007 DTaP,Tdap,Td Vaccine (1 - Tdap)2007Hepatitis B Vaccine (1 of 3 - 19+ 3- dose series)2007HPV Vaccine (1 - 3-dose SCDM series)2015Lipid Owegemzde64/21/2024Covid-19 Vaccine ( season)2025Influenza Vaccine (#1)2025 Care Teams Team MemberRelationshipSpecialtyStart DateEnd Date Cristi Prasad DO PCP - GeneralFamily Medicine11/17/14
--- OUTSIDE RECORDS SUMMARY | 2025-04-26 08:50 | XMS_ITS | CCD ---
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 Expert.Result Comment: eGFR is race adjusted. AA=.Performed By: #### [id number], [id number], [id number] #### Page [facility] [address], [place] [address]XXV/1.73 sq M.predicted among non-blacks MDRD (S/P/Bld) [Vol rate/Area]mL/min/{1.73_m2}Normal>=59[facility]S Medical CenterComment on above: Order Comment: Order added by Discern Expert.Result Comment: Chronic kidney disease could be indicated at eGFR's of less than 60 mL/min/1.73m2. Kidney failure is indicated at less than 15 mL/min/1.73m2.Performed By: #### [id number], [id number], [id number], [id number], [id number] #### Page [facility] [address], [place] [address]WIL AUTO DIFFon 21-28-3682ZFGK #0.1 103/ulNormal0.0-0.1[facility] CenterComment on above:Performed By: #### CBC #### [facility] [address] [address] [address] Hilaria ReynoldsBasophils/100 WBC (Bld)0.8 %Normal0.2-2.0[facility] Comment on above:Performed By: #### CBC #### [facility] [address] [address] [address] Hilaria Wall #0.2 103/ulNormal0.0-0.7The [facility] HospitalComment on above: Performed By: #### CBC #### [facility] [address] [address] [address] Hilaria Medranoosinophils/100 WBC (Bld)2.6 %Normal0.9-7.0[facility] Comment on above:Performed By: #### CBC #### [facility] [address] [address] [address] Hilaria Medranorythrocyte distribution width (RBC) [Ratio]12.6 %Zccvwb37.0-15.0 [facility] CenterComment on above:Performed By: #### CBC #### [facility] [address] [address] [address] Hilaria ReynoldsHematocrit (Bld) [Volume fraction]42.4 %Trapeh39.0-54.0The [facility] HospitalComment on above:Performed By: #### CBC #### [facility] [address] [place] [address] Dr. Hilaria ReynoldsHemoglobin (Bld) [Mass/Vol]14.6 g/eEKgtfmb58.0-18.0The [facility] HospitalComment on above:Performed By: #### CBC #### [facility] [address] [place] [address] Dr. Hilaria Avila #0.01 10e3/ulNormal0.00-0.03The [facility] HospitalComment on above:Performed By: #### CBC #### [facility] [address] [place] [address] Dr. Hilaria Avila %0.1 %Normal0.0-0.5The [facility] HospitalComment on above: Performed By: #### CBC #### [facility] [address] [place] [address] Dr. Hilaria Paredes #2.9 103/ulNormal1.2-3.8The [facility] HospitalComment on above:Performed By: #### CBC #### [facility] [address] [place] [address] Dr. Hilaria Hankinshocytes/100 WBC (Bld)39.2 %Sgclhf74.5-60.0The [facility] HospitalComment on above:Performed By: #### CBC #### [facility] [address] [place] [address] Dr. Hilaria AveryUAL DIFF REQNONormalThe [facility] HospitalComment on above: Performed By: #### CBC #### [facility] [address] [place] [address] Dr. Hilaria Santos (RBC) [Entitic mass]31.1 nlDazlxr34.9-34.0The [facility] HospitalComment on above:Performed By: #### CBC #### [facility] [address] [place] [address] Dr. Hilaria Ortez (RBC) [Mass/Vol]34.4 g/oXUelgie20.9-35.2The [facility] HospitalComment on above:Performed By: #### CBC #### [facility] [address] [place] [address] Dr. Hilaria Webb (RBC) [Entitic vol]90.2 zSIhhada87.0-94.0The [facility] HospitalComment on above:Performed By: #### CBC #### [facility] [address] [place] [address] Dr. Hilaria Calix #0.6 103/ulNormal0.3-0.8The [facility] HospitalComment on above:Performed By: #### CBC #### [facility] [address] [place] [address] Dr. Hilaria Lingocytes/100 WBC (Bld)7.8 %Normal1.7-12.0The [facility] Comment on above:Performed By: #### CBC #### [facility] [address] [place] [address] Dr. Hilaria Peng #3.6 103/ulNormal1.4-6.5The [facility] HospitalComment on above:Performed By: #### CBC #### [facility] [address] [place] [address] Dr. Hilaria Merinoutrophils/100 WBC (Bld)49.5 %Oebqxk98.0-75.0The [facility] HospitalComment on above:Performed By: #### CBC #### [facility] [address] [place] [address] Dr. Hilaria Cheung mean volume (Bld) [Entitic vol]8.7 fLCritically low 9.5-13.5The [facility] HospitalComment on above:Performed By: #### CBC #### [facility] [address] [place] [address] Dr. Hilaria AgostoT285 103/rnRuurxi571-689Drj [facility] HospitalComment on above: Performed By: #### CBC #### [facility] [address] [place] [address] Dr. Hilaria ReynoldsRBC4.70 106/ulNormal4.70-6.10The [facility] on above:Performed By: #### CBC #### [facility] [address] [place] [address] Dr. Hilaria ReynoldsWBC7.3 103/ulNormal4.0-11.0The [facility] on above: Performed By: #### CBC #### [facility] [address] [place] [address] Dr. Hilaria Dickerson TESTINGon 41-36-3963UHBP HEADERSEE SCANNED REPORT IN [facility] NormalThe [facility] HospitalComeaton rapids [facility] on above:Performed By: #### MISC #### [facility] [address] [place] [address] Dr. Hilaria Lopez FROM REF LAB05/16/21[facility] on above:Performed By: #### MISC #### [facility] [address] [place] [address] Dr. Hilaria Lawrence TO REF LAB05/16/21[facility] [place] on above:Result Comment: co to ftPerformed By: #### MISC #### [facility] [address] [place] [address] Dr. Hilaria Moreau 14(COMP METB)on 52-36-2486Cbgwyqv [Mass/Vol]4.4 g/dLNormal 3.5-5.0The [facility] on above:Performed By: #### CMP #### [facility] [address] [place] [address] Dr. Hilaria ReynoldsAlbumin/Globulin [Mass ratio]1.4 {ratio}NormalThe [facility] HospitalComeaton rapids [facility] on above:Performed By: #### CMP #### [facility] [address] [place] [address] Dr. Hilaria Flaherty [Catalytic activity/Vol]68 U/JKyqykc60-764Xki [facility] on above:Performed By: #### CMP #### [facility] [address] [place] [address] Dr. Hilaria Mckeon [Catalytic activity/Vol]27 U/URalmcx65-63Vav [facility] HospitalComment on above:Performed By: #### CMP #### [facility] [address] [place] [address] Dr. Hilaria Katzon gap [Moles/Vol]14.2 mmol/LNormalTr[facility] Comment on above:Performed By: #### CMP #### [facility] [address] [place] [address] Dr. Hilaria ReynoldsAST [Catalytic activity/Vol]19 U/NTqrhhu94-85Duc [facility] HospitalComment on above:Performed By: #### CMP #### [facility] [address] [place] [address] Dr. Hilaria ReynoldsBilirubin [Mass/Vol]0.4 mg/dLNormal0.2-1.3TRegency Hospital [facility] Comment on above:Performed By: #### CMP #### [facility] [address] [place] [address] Dr. Hilaria ReynoldsCalcium [Mass/Vol]9.1 mg/dLNormal8.4-10.2[facility] Comment on above:Performed By: #### CMP #### [facility] [address] [place] [address] Dr. Hilaria ReynoldsChloride [Moles/Vol]101 mmol/UBebkwb07-364Zcq [facility] Comment on above:Performed By: #### CMP #### [facility] [address] [place] [address] Dr. Hilaria ReynoldsCO2 [Moles/Vol]29.5 mmol/NAjanbt69.0-30.0The [facility] Comment on above:Performed By: #### CMP #### [facility] [address] [place] [address] Dr. Hilaria ReynoldsCreatinine [Mass/Vol]1.09 mg/dLNormal0.66-1.25The [facility] HospitalComment on above:Performed By: #### CMP #### [facility] [address] [place] [address] Dr. Manrique ChangEGFR-AF GEORGIAN>60Normal>=60The [facility] HospitalComment on above:Performed By: #### CMP #### [facility] [address] [address] [address] Hilaria MedranoGFR-NON AF GEORGIAN>60Normal>=60The [facility] HospitalComment on above:Performed By: #### CMP #### [facility] [address] [address] [address] Hilaria ReynoldsGlobulin (S) [Mass/Vol]3.2 g/dLNormMarion HospitalComment on above:Performed By: #### CMP #### [facility] [address] [address] [address] Hilaria ReynoldsGlucose [Mass/Vol]107 mg/dLCritically hiwr52-820Jpe [facility] HospitalComment on above:Performed By: #### CMP #### [facility] [address] [address] [address] Hilaria ReynoldsPotassium [Moles/Vol]3.7 mmol/LNormal3.4-5.0[facility] Comment on above:Performed By: #### CMP #### [facility] [address] [address] [address] Hilaria ReynoldsProtein [Mass/Vol]7.6 g/dLNormal6.1-8.2[facility] Comment on above:Performed By: #### CMP #### [facility] [address] [address] [address] Hilaria ReynoldsSodium [Moles/Vol]141 mmol/KUyvcww857-651BwwTr[facility] Health [facility] Comment on above:Performed By: #### CMP #### [facility] [address] [address] [address] Hilaria ReynoldsUrea nitrogen [Mass/Vol]18.0 mg/dLNormal9.0-20.0The [facility] HospitalComment on above:Performed By: #### CMP #### [facility] [address] [address] [address] Hilaria ReynoldsUrea nitrogen/Creatinine [Mass ratio]16.5 mg/mgNormMarion HospitalComment on above:Performed By: #### CMP #### [facility] [address] [address] [address] Hilaria Reynolds Vital Signs Date TimeVital SignValuePerforming ZmfozoailXfyerscr84-06-0707 14:37-0400Body rhlbce205.42 cmProm[facility]03-27-2025 14:37-0400Body mass index (BMI) [Ratio]30.9 kg/p6IrokyhppqProm[facility]ica [facility]03-27-2025 14:37-0400Body luopqbzmmtz80.4 [degF][facility]03-27-2025 14:37-0400Body wssamg161.14 kgPromedica [facility] Hospital03-27-2025 14:37-0400Diastolic blood ljxsvokf56 mm[Hg][facility] 08-18-2024 14:37-0400Heart rate90 /[facility] 08-18-2024 14:37-0400Respiratory rate16 /[facility] 08-18-2024 14:37-3567CyH7% (BldA) [Mass fraction]97 %[facility]03-27-2025 14:37-0400Systolic blood mm[Hg][facility]01-18-2022 14:45-0500Body higxms184.96 cmAmber Ginty Other [employer] Other 01-18-2022 14:45-0500Body mass index (BMI) [Ratio] 26.96 kg/i8Hxjgj Ginty Other [employer] Other 01-18-2022 14:45-0500Body .7 [degF]Steph Ginty Other [employer] Other 01-18-2022 14:45-0500Body kxnjdu90.26 kgAmber Ginty Other [employer] Other 207788-58-6874 14:45-9311ZbH6% (BldA) [Mass fraction]99 % Steph Rivera Other [facility] [place] [employer] Other Encounters Encounter DateEncounter TypeCare ProviderFacilityStart: 08-18-2024 End: 21-42-0010nfmsejryaqEfsnynotcJoint [facility] Work Phone: Start: 08-18-2024 End: 94-96-6305Ptpxhqf encounter procedureAt[facility] Work Phone: Start: 47-36-5600umwactdtzpTksjwkpbeco Abdelaziz Facility:[facility]: 12-18-2022 End: 68-95-7607ofscjybxaeLilakqb HARWOODFacility:[facility] WellnessStart: 10-10-2022 End: 79-71-2740qbfcpjupryGyqckxe MAYSFacility:[facility] Health and WellnessStart: 05-12-2022 End: 60-96-9656Uehkcdyhr department patient visitSanjeev ToribioFacility:[facility] Start: 06-11-2021 End: 08-63-8883sczsojecfjQwlnx Ginty Other [facility] [place] [employer] Other Start: 52-49-5931Zqozbb outpatient visit 15 minutes Steph PrabhakaryFPG Urgent Care ClydeStart: 05-16-2021 End: 82-27-3774fvqsqescupFP JACK HAYFacility:H1 Payers DatePayer CategoryPayerPolicy [id number] [id number] Health InsuranceMemorial Health System Marietta Memorial [id number] [id number] Social History DateTypeDetailFacilitySex Assigned At [employer] Other Start: 84-74-2327Cohhwhc smoking status NHISUnknown if ever smokedGreen Cross Hospitaltart: 10-21-2290YmxQfdh (finding) [facility]: 75-29-1552Ifz Assigned At [facility] Evaluation note 06-11-2021 Note Date & BmfsTpzjSjwdmnoc53-94-8610 Evaluation note* Encounter Date Diagnosis Assessment Notes Treatment Notes Treatment Clinical Notes May, Contact with and (montaan spected) exposure to other viral communicable diseases (ICD-10 - Z20.828) May,2COVID-19 (ICD-10 - U07.1) Rapid COVID test performed [...] treatment plan. Patient left in stable condition May,therAdditional time spent conducting pre-visit phone call, screening for symptoms, instructions on social distancing, application and removal of PPE, and cleaning of examination room, equipment and supplies was preformed. Patient education given for testing methodology and results. Patient care instructions given in writting by [facility] Care At Home document [facility] [employer] Other Evaluation note Note Date & TypeNoteFacilityEvaluation noteNo assessment information available [facility] Work Phone: History general Narrative - Reported Note Date & TypeNoteFacilityHistory general Narrative - Reported* Type Description Date Medical History chronic diarrhea Surgical Historywisdom teeth Memeoirs [facility] [employer] Other Summary Purpose Family History Relationship Condition Age at Onset Recorded Date/T treasure mother Diabetes mellitus Unknown Carpal tunnel syndromeUnknown Advance Directives Advance Directive Response Recorded Date/ Time Advance Directives No August 18 025 2:31pm Chief Complaint and Reason for Visit Chief Complaint Admit Date Cough, congestion August 18, 2024 2:3 6pm Additional Source Comments (unrecognized sect ion and content) No Status Records FoundNo Status Records FoundNo Status Records Found INFORMATION SOURCE (unrecogn ized section and content) DATE CREATED AUTHOR 06/11/2021 [facility] DATE CREATED AUTHOR AUTHOR'S ORGANIZ ATION 12/18/[address] [facility] DATE CREATED AUTHOR AUTHOR'S ORGANIZ ATION 07/03/2023 [facility] REASON FOR VISIT (unrecogniz ed section and content) #20 BLUE [place], CHILLS, LAC K OF TASTE, COUGH, BODYACHES X 2 DAYS Care Teams (unrecognized sec tion and content) Team Status: Active Member Role Status Dates NON STAFF Primary Care Provider Active Team Status: Inactive Member Role Status Dates NON STAFF Primary Care Provider Active Start: August 18, 2024 End: August 18Jamie Sauceda ProviderActiveStart: August 18, 2024 End: August 18, 2024 Goals (unrecognized section and content) Goals may be documented in a n alternate section FOR RECORDS PERTAINING TO PATIENTS WHO ARE [...] BE BASED ON THE PRIMARY CLINICAL RECORDS. [facility] [employer] [facility]. provides no warranty or guarantee of the accuracy or completeness of information in this document.
== END 2025-04-26 09:21 | disposition home or self-care (01) ==
PROVIDERS: Emergency Provider Emergency Medicine
DX: S20.212A Contusion of left front wall of thorax, initial encounter (principal); W00.0XXA Fall on same level due to ice and snow, initial encounter
CPT/HCPCS: 71101; 72100; 99283